=== PATIENT | female | born 1970 | race Caucasian/White ===

== ENCOUNTER → 2020-06-17 09:02 | Outpatient (BNVA) | payer OTHER, SELFPAY | PROVIDERS: PCP Internal Medicine; Referring Provider Internal Medicine; Visit Provider Dietitian, Registered | DX: Z76.89 Persons encountering health services in other specified circumstances (principal) ==

== ENCOUNTER → 2020-08-22 08:52 | Outpatient (BNVA) | payer OTHER, SELFPAY | PROVIDERS: PCP Internal Medicine; Visit Provider Dietitian, Registered | DX: Z76.89 Persons encountering health services in other specified circumstances (principal) ==

== ENCOUNTER 2020-08-31 10:59 | Outpatient (REF) | payer OTHER, SELFPAY ==
[2020-08-31 13:09] LABS: MANUAL DIFF FLAG NO
[2020-08-31 13:16] LABS: Eosinophils Percent Auto 0.9 % (0-4); Hemoglobin 11.4 g/dl (12.0-16.0); Imm Gran Abs Auto 0.01 X10*3/uL (0.00-0.03); Imm Gran Pct Auto 0.2 % (0.0-0.4); Lymphocytes Absolute Auto 1.8 X10*3/uL (1.2-4.9); Lymphocytes Percent Auto 40.8 % (20-40); Mean Corpuscular HGB Conc 32.6 g/dl (31.0-35.0); Mean Corpuscular Hemoglobin 28.9 pg (27.0-33.0); Mean Corpuscular Volume 88.8 fL (80-98); Mean Platelet Volume 10.6 fL (9.4-12.3); Monocytes Absolute Auto 0.2 X10*3/uL (0.1-1.2); Neutrophils Absolute Auto 2.3 X10*3/uL (2.0-8.3); Neutrophils Percent Auto 53.1 % (45-73); Platelet Count 257 X10*3/uL (160-400); Red Blood Count 3.94 X10*6/uL (4.20-5.50); Red Cell Distribution Width 12.9 % (11.0-16.0); White Blood Count 4.4 X10*3/uL (4.8-10.8)
[2020-08-31 13:38] LABS: Alanine Aminotransferase 18 U/L (0-31); Albumin Level 4.8 g/dL (3.5-5.0); Alkaline Phosphatase 76 U/L (39-117); Anion Gap 14 (12-20); Aspartate Amino Transferase 14 U/L (5-31); Bilirubin Total 0.4 mg/dL (0.0-1.0); Blood Urea Nitrogen 16 mg/dL (9-16); C Reactive Protein 0.93 mg/dL (< or = 0.50); Calcium 9.8 mg/dL (8.4-10.2); Carbon Dioxide 27 mmol/L (22-29); Chloride 104 mmol/L (96-108); Estimated Glomerular Filt Rate > 60; Glucose Random 95 mg/dL (60-115); Potassium 4.6 mmol/l (3.3-5.1); Sodium 140 mmol/L (135-145); Total Protein 7.3 g/dL (6.5-8.0)
[2020-08-31 13:59] LABS: Thyroid Stimulating Hormone 1.12 uIU/mL (0.32-4.0)
[2020-08-31 14:25] LABS: Erythrocyte Sedimentation Rate 30 MM/HR (0-20)
[2020-09-01 16:07] LABS: Cyclic Citrullinated Peptide <16 UNITS
[2020-09-02 22:18] LABS: Anti Nuclear Antibody Screen POSITIVE (NEGATIVE)
[2020-09-04 13:27] LABS: Vitamin D 25-OH, D2 <4 ng/mL; Vitamin D 25-OH, D3 50 ng/mL; Vitamin D 25-OH, Total 50 ng/mL (30-100)
== END 2020-08-31 11:00 | disposition home or self-care (01) ==
LOC: HO.LAB 10:59
PROVIDERS: PCP Internal Medicine; Referring Provider Internal Medicine; Visit Provider Student in an Organized Health Care Education/Training Program
DX: M25.50 Pain in unspecified joint (principal)
CPT/HCPCS: 36415; 80053; 82306; 84443; 85025; 85652; 86038; 86039; 86140; 86200

== ENCOUNTER 2020-09-01 08:43 | Outpatient (REF) | payer OTHER, SELFPAY ==
--- NOTE | 2020-09-01 08:47 | MM_ITS ---
EXAMINATION: MM SCREENING DIGITAL BREAST TOMOSYNTHESIS, BILATERAL CLINICAL INFORMATION: Screening. Asymptomatic. The lifetime risk of breast cancer based on the Tyrer-Cuzick Model is 7%. COMPARISON: Mammography: 08/25/2019, 08/13/2019, 07/15/2018, 07/10/2017 TECHNIQUE: Digital breast tomosynthesis is performed in both the craniocaudal and mediolateral oblique views along with computer-aided detection (CAD). Synthesized 2D images are generated from the tomosynthesis. FINDINGS: There are scattered areas of fibroglandular density (ACR BI-RADS breast composition Category b). There are no significant masses, abnormal calcifications, or other abnormalities. Parenchymal pattern is similar to prior studies. No developing density. No significant changes. MM/MM tomosynthesis screening BI IMPRESSION: No mammographic evidence of malignancy. ASSESSMENT: BI-RADS 1: Negative RECOMMENDATION: Routine annual mammography screening. This patient's information was entered into a reminder system with a target due date for their next mammogram.
== END 2020-09-01 08:44 | disposition home or self-care (01) ==
LOC: HO.MAMMO 08:43
PROVIDERS: PCP Internal Medicine; Visit Provider Obstetrics & Gynecology Gynecology
DX: Z12.31 Encounter for screening mammogram for malignant neoplasm of breast (principal)
CPT/HCPCS: 77063; 77067

== ENCOUNTER 2020-09-08 06:36 | Outpatient (REF) | payer OTHER, SELFPAY ==
[2020-09-08 07:17] LABS: Glucose Urine UA NEG (NEG); Leukocyte Esterase Urine NEG (NEG); Nitrite Urine NEG (NEG); Urine Blood NEG (NEG); Urine Ketones NEG (NEG); Urine Protein NEG (NEG-TRACE)
[2020-09-08 07:23] LABS: Appearance Urine CLEAR; Color Urine YELLOW
[2020-09-08 08:06] LABS: Mucus Urine 2+ /LPF; RBC Urine 0-2 /HPF (0); Squamous Epithelial Cell Urine 1+ /LPF
[2020-09-09 06:17] LABS: Thyroglobulin Antibodies <1 IU/mL (< or = 1); Thyroid Peroxidase Antibodies <1 IU/mL (<9)
[2020-09-09 13:42] LABS: Complement C3 110 mg/dL (83-193)
[2020-09-09 14:58] LABS: Anti DNA DS Antibody 1 IU/mL; SM/Ribonucleoprotein Ab <1.0 NEG AI (<1.0 NEG); Smith Protein <1.0 NEG AI (<1.0 NEG)
== END 2020-09-08 06:37 | disposition home or self-care (01) ==
LOC: HO.LAB 06:36
PROVIDERS: PCP Internal Medicine; Visit Provider Student in an Organized Health Care Education/Training Program
DX: R76.8 Other specified abnormal immunological findings in serum (principal)
CPT/HCPCS: 36415; 81001; 86160; 86225; 86235; 86376; 86800

== ENCOUNTER → 2020-09-20 08:25 | Outpatient (BNVA) | payer OTHER, SELFPAY | PROVIDERS: PCP Internal Medicine; Visit Provider Student in an Organized Health Care Education/Training Program ==

== ENCOUNTER → 2020-12-01 09:45 | Outpatient (BNVA) | payer OTHER, SELFPAY | PROVIDERS: PCP Internal Medicine; Visit Provider Dietitian, Registered | DX: E66.3 Overweight (principal); E78.00 Pure hypercholesterolemia, unspecified | CPT/HCPCS: 97803 ==

== ENCOUNTER 2020-12-05 09:03 | Outpatient (REF) | payer OTHER, SELFPAY ==
--- NOTE | ~2020-12-05 | XR_ITS ---
EXAMINATION: XR CHEST CLINICAL INFORMATION: Cough. COMPARISON: Chest radiograph dated 10/16/2019. TECHNIQUE: 2 views of the chest were obtained. FINDINGS: The lungs are clear. The cardiomediastinal silhouette is normal in size. There is no pleural effusion or pneumothorax. No acute osseous abnormality. XR/XR chest 2V IMPRESSION: No acute cardiopulmonary findings.
[2020-12-05 15:27] LABS: Influenza A PCR NEGATIVE (Negative); Influenza B PCR NEGATIVE (Negative); Resp Syncy Virus RNA Qual PCR NEGATIVE (Negative); SARS COV2 PCR INHOUSE NEGATIVE (Negative)
== END 2020-12-05 09:04 | disposition home or self-care (01) ==
LOC: HO.HMGCX 09:03
PROVIDERS: Visit Provider Nurse Practitioner Family
DX: R05 Cough (principal); Z20.822 Contact with and (suspected) exposure to COVID-19
CPT/HCPCS: 0241U; 36415; 71046

== ENCOUNTER 2020-12-05 09:13 | Outpatient (REF) | payer OTHER, SELFPAY | END 2020-12-05 09:14 | disposition home or self-care (01) | LOC: HO.LAB 09:13 | PROVIDERS: Visit Provider Nurse Practitioner Family | DX: Z13.89 Encounter for screening for other disorder (principal) ==

== ENCOUNTER 2021-07-15 06:58 | Outpatient (REF) | payer OTHER, SELFPAY ==
[2021-07-15 07:04] LABS: MANUAL DIFF FLAG NO
[2021-07-15 07:49] LABS: Immature Retic Fraction 5.3 % (3.0-15.9); Retic HGB Equivalent 33.1 pg (30.0-35.0); Reticulocyte Percent 0.9 % (0.5-1.8); Reticulocytes Absolute 0.035 X10*6/uL (0.026-0.095)
[2021-07-15 08:01] LABS: Alanine Aminotransferase 16 U/L (0-31); Albumin Level 4.2 g/dL (3.5-5.0); Alkaline Phosphatase 67 U/L (39-117); Anion Gap 10 (12-20); Aspartate Amino Transferase 15 U/L (5-31); Bilirubin Total 0.4 mg/dL (0.0-1.0); Blood Urea Nitrogen 20 mg/dL (9-16); Calcium 9.1 mg/dL (8.4-10.2); Carbon Dioxide 26 mmol/L (22-29); Chloride 107 mmol/L (96-108); Cholesterol 222 mg/dL; Estimated Glomerular Filt Rate > 60; Glucose Random 96 mg/dL (60-115); HDL Cholesterol 58 mg/dL; Iron 85 mcg/dL (30-160); LDL Cholesterol Calculated 149 mg/dl; Percent Iron Saturation 27 % (15-50); Potassium 4.3 mmol/L (3.3-5.1); Sodium 139 mmol/L (135-145); Total Iron Binding Capacity 320 mcg/dL (228-428); Total Protein 6.6 g/dL (6.5-8.0); Triglycerides 79 mg/dL; Unsaturated Iron Binding 235 ug/dL
[2021-07-15 08:24] LABS: Ferritin 73 ng/mL (10-250); Thyroid Stimulating Hormone 2.19 uIU/mL (0.32-4.0); Vitamin D 25-OH Total 42.8 ng/mL (>30)
[2021-07-15 09:17] LABS: Erythrocyte Sedimentation Rate 25 MM/HR (0-20)
[2021-07-15 09:18] LABS: Basophils Percent Auto 0.6 % (0-2); Eosinophils Absolute Auto 0.1 X10*3/uL (0.0-0.4); Eosinophils Percent Auto 1.8 % (0-4); Hematocrit 35.2 % (37.0-47.0); Hemoglobin 11.5 g/dl (12.0-16.0); Imm Gran Abs Auto 0.01 X10*3/uL (0.00-0.03); Imm Gran Pct Auto 0.3 % (0.0-0.4); Lymphocytes Absolute Auto 1.7 X10*3/uL (1.2-4.9); Lymphocytes Percent Auto 49.6 % (20-40); Mean Corpuscular HGB Conc 32.7 g/dl (31.0-35.0); Mean Corpuscular Hemoglobin 29.3 pg (27.0-33.0); Mean Corpuscular Volume 89.8 fL (80.0-98.0); Mean Platelet Volume 10.2 fL (9.4-12.3); Monocytes Absolute Auto 0.2 X10*3/uL (0.1-1.2); Monocytes Percent Auto 5.6 % (2-11); Neutrophils Absolute Auto 1.4 x10*3/uL (2.0-8.3); Neutrophils Percent Auto 42.1 % (45-73); Platelet Count 215 X10*3/uL (160-400); Red Blood Count 3.92 X10*6/uL (4.20-5.50); White Blood Count 3.4 X10*3/uL (4.8-10.8)
[2021-07-17 04:31] LABS: Vitamin B12 540 pg/mL (200-900)
== END 2021-07-15 06:59 | disposition home or self-care (01) ==
LOC: HO.LAB 06:58
PROVIDERS: Internal Medicine Medical Oncology; PCP Internal Medicine; Visit Provider Internal Medicine
DX: D72.819 Decreased white blood cell count, unspecified (principal); E78.00 Pure hypercholesterolemia, unspecified; R42 Dizziness and giddiness
CPT/HCPCS: 36415; 80053; 80061; 82306; 82607; 82728; 82746; 83540; 84439; 84443; 85025; 85045; 85652

== ENCOUNTER 2021-09-04 15:49 | Outpatient (REF) | payer OTHER, SELFPAY ==
--- NOTE | ~2021-09-04 | MM_ITS ---
EXAMINATION: MM SCREENING DIGITAL BREAST TOMOSYNTHESIS, BILATERAL CLINICAL INFORMATION: Screening. Asymptomatic. The lifetime risk of breast cancer based on the Tyrer-Cuzick Model is 8%. COMPARISON: Mammography: 09/01/2020, 08/25/2019, 08/13/2019, 07/15/2018; targeted left breast ultrasound 08/16/2016. TECHNIQUE: Digital breast tomosynthesis is performed in both the craniocaudal and mediolateral oblique views along with computer-aided detection (CAD). Synthesized 2D images are generated from the tomosynthesis. Additional left MLO x2 views are obtained. FINDINGS: There are scattered areas of fibroglandular density (ACR BI-RADS breast composition Category b). There are no significant masses, abnormal calcifications, or other abnormalities. Parenchymal pattern is similar to prior studies. No developing density. No architectural abnormality. The axilla and skin contours are unremarkable. MM/MM tomosynthesis screening BI IMPRESSION: No mammographic evidence of malignancy. ASSESSMENT: BI-RADS 1: Negative RECOMMENDATION: Routine annual mammography screening. This patient's information was entered into a reminder system with a target due date for their next mammogram.
== END 2021-09-04 15:50 | disposition home or self-care (01) ==
LOC: HO.MAMMO 15:49
PROVIDERS: Visit Provider Internal Medicine
DX: Z12.31 Encounter for screening mammogram for malignant neoplasm of breast (principal)
CPT/HCPCS: 77063; 77067

== ENCOUNTER → 2021-11-15 11:23 | Outpatient (BNVA) | payer OTHER, SELFPAY | PROVIDERS: PCP Internal Medicine; Referring Provider Internal Medicine; Visit Provider Physician Assistant | DX: Z12.11 Encounter for screening for malignant neoplasm of colon (principal); Z79.899 Other long term (current) drug therapy ==

== ENCOUNTER → 2022-01-25 08:54 | Outpatient (BNVA) | payer OTHER, SELFPAY | PROVIDERS: PCP Internal Medicine; Visit Provider Dietitian, Registered | DX: E66.3 Overweight (principal); E78.00 Pure hypercholesterolemia, unspecified; Z68.28 Body mass index [BMI] 28.0-28.9, adult | CPT/HCPCS: 97803 ==

== ENCOUNTER → 2022-03-23 09:18 | Outpatient (BNVA) | payer OTHER, SELFPAY | PROVIDERS: PCP Internal Medicine; Visit Provider Dietitian, Registered | DX: E66.3 Overweight (principal); E78.00 Pure hypercholesterolemia, unspecified | CPT/HCPCS: 97803 ==

== ENCOUNTER → 2022-06-22 09:21 | Outpatient (BNVA) | payer OTHER, SELFPAY | PROVIDERS: PCP Internal Medicine; Visit Provider Dietitian, Registered | DX: E66.3 Overweight (principal); E78.00 Pure hypercholesterolemia, unspecified; E78.5 Hyperlipidemia, unspecified; Z68.27 Body mass index [BMI] 27.0-27.9, adult; Z71.3 Dietary counseling and surveillance | CPT/HCPCS: 97803 ==

== ENCOUNTER 2022-09-13 07:18 | Outpatient (REF) | payer OTHER, SELFPAY ==
--- NOTE | ~2022-09-13 | MM_ITS ---
EXAMINATION: MM SCREENING DIGITAL BREAST TOMOSYNTHESIS, BILATERAL CLINICAL INFORMATION: Screening. Asymptomatic. The lifetime risk of breast cancer based on the Tyrer-Cuzick Model is 8%. COMPARISON: Mammography: September 04, 2021 and studies dating back to August 13, 2016 TECHNIQUE: Digital breast tomosynthesis is performed in both the craniocaudal and mediolateral oblique views along with computer-aided detection (CAD). Synthesized 2D images are generated from the tomosynthesis. FINDINGS: There are scattered areas of fibroglandular density (ACR BI-RADS breast composition Category b). There are no significant masses, abnormal calcifications, or other abnormalities. MM/MM tomosynthesis screening BI IMPRESSION: No significant changes ASSESSMENT: BI-RADS 1: Negative RECOMMENDATION: Routine annual mammography screening. This patient's information was entered into a reminder system with a target due date for their next mammogram.
== END 2022-09-13 07:19 | disposition home or self-care (01) ==
LOC: HO.MAMMO 07:18
PROVIDERS: Visit Provider Internal Medicine
DX: Z12.31 Encounter for screening mammogram for malignant neoplasm of breast (principal)
CPT/HCPCS: 77063; 77067

== ENCOUNTER 2022-11-16 07:03 | Day surgery (SDC) | payer OTHER, SELFPAY ==
[2022-11-12 15:02] VITALS: BMI 28.8
--- NOTE | 2022-11-15 12:17 | HO.ANESPROP2 ---
Documented by User: Joanie Murray NP 11/15/22 12:17 HPI - Anesthesia Eval Consult details Narrative: 52yo F for Colonoscopy PMFSH Active Problems Active Problems: All Active Problems (Updated 11/12/22 @ 14:53 by Mirella Rendon, JUDY) Overweight (BMI 25.0-29.9) (Acute) Polyarthralgia (Acute) LENIN positive (Acute) Chronic leukopenia (Acute) Fibromyalgia (Acute) Cough (Acute) Laryngitis (Acute) Annual physical exam (Acute) Colon cancer screening (Acute) Generalized anxiety disorder (Acute) Vertigo (Acute) Anemia (Acute) Insomnia (Acute) Encounter for screening colonoscopy (Acute) Hearing deficit (Acute) Alopecia (Acute) LENIN positive (Acute) Constipation (Acute) Raynauds phenomenon (Acute) Hypercholesterolemia (Acute) Past Medical History Medical History (Updated 11/16/22 @ 07:23 by Sivan Hernández RN) Anemia Chronic low back pain Fibromyalgia Hx of vertigo Hypercholesterolemia Meniere disease Migraine Raynauds phenomenon Family History Family History Father Diabetes Hypertension Mother Hypertension Maternal Aunt Myocardial infarction Maternal Uncle Myocardial infarction Surgical History Surgical History Hx of tubal ligation Social History Social History (Updated 02/12/22 @ 08:33 by Lata Santos CMA) Household Members: Significant Other and Children Housing: House Are you 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 (mother) Do you presently have visiting nurse or other home services: No Alcohol intake: never Patient Tobacco Use Status: Never used Tobacco e-Cigarette/Vaping Use: Never Used Second Hand Smoke Exposure: No Are you DNR?: No Advance Directives: No Advance Directives Information Provided: Yes Recently lost weight without trying: No Nutrition Risks: No Nutritional Risk service: No Current occupational status: employed Cognitive needs: No Hearing needs: No Vision needs: No Meds Allergies Allergy/AdvReac Type Severity Reaction Status Date / Time Penicillins Allergy Intermediate Rash, Verified 10/29/22 16:42 Swelling fluoxetine AdvReac Intermediate Swelling Verified 10/29/22 16:42 Home Medications Medication Instructions Recorded Confirmed Last Taken Type multivitamin 1 tab PO DAILY 06/17/20 11/12/22 Unknown History melatonin 10 mg capsule 10 mg PO BEDTIME PRN Sleep 07/18/20 11/12/22 Unknown History estradiol 0.01% (0.1 mg/gram) 1 g vaginal 2XW 12/05/20 11/12/22 Unknown History vaginal cream ashwagandha root extract 500 mg 1,300 mg PO DAILY 02/12/22 11/12/22 Unknown History capsule Exam Exam Date and Time: November 15, 2022 1217 Height,Weight and Vital Signs: Height 5 ft 5 in Weight 78.471 kg Assessment and Plan Assessment Anesthesia Assessment: Chart Reviewed Documented by User: Alberta Reveles MD 11/16/22 09:12 HPI - Anesthesia Eval Consult details Narrative: 52yo F for Colonoscopy screening [facility] Past Medical History Medical History (Updated 11/16/22 @ 07:23 by Sivan Hernández RN) Anemia Chronic low back pain Fibromyalgia Hx of vertigo Hypercholesterolemia Meniere disease Migraine Raynauds phenomenon Family History Family History Father Diabetes Hypertension Mother Hypertension Maternal Aunt Myocardial infarction Maternal Uncle Myocardial infarction Family history of problems with anesthesia: No Surgical History Surgical History Hx of tubal ligation History of Problems with Anesthesia: No Social History Social History (Updated 02/12/22 @ 08:33 by Lata Santos CMA) Household Members: Significant Other and Children Housing: House Are you 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 (mother) Do you presently have visiting nurse or other home services: No Alcohol intake: never Patient Tobacco Use Status: Never used Tobacco e-Cigarette/Vaping Use: Never Used Second Hand Smoke Exposure: No Are you DNR?: No Advance Directives: No Advance Directives Information Provided: Yes Recently lost weight without trying: No Nutrition Risks: No Nutritional Risk service: No Current occupational status: employed Cognitive needs: No Hearing needs: No Vision needs: No Meds Allergies Allergy/AdvReac Type Severity Reaction Status Date / Time Penicillins Allergy Intermediate Rash, Verified 10/29/22 16:42 Swelling fluoxetine AdvReac Intermediate Swelling Verified 10/29/22 16:42 Home Medications Medication Instructions Recorded Confirmed Last Taken Type multivitamin 1 tab PO DAILY 06/17/20 11/12/22 Unknown History melatonin 10 mg capsule 10 mg PO BEDTIME PRN Sleep 07/18/20 11/12/22 Unknown History estradiol 0.01% (0.1 mg/gram) 1 g vaginal 2XW 12/05/20 11/12/22 Unknown History vaginal cream ashwagandha root extract 500 mg 1,300 mg PO DAILY 02/12/22 11/12/22 Unknown History capsule Exam Airway Mallampati Class: II TM Dist: >3cm Neck ROM: Full Heart: rr Lungs: cta Assessment and Plan Final Anesthetic Review Family History of Problems with Anesthesia: No History of Problems with Anesthesia: No NPO: Yes ASA Class: II Final Preanesthetic Review: No Changes in Pt Med Stat, Consent Obtained/Reviewed and Anes Risks/Benef Reviewed Patient Risk: Low Procedure Risk: Low Anesthetic Plan Anesthetic Plan: MAC: Disposition: Standard PACU
[2022-11-16 07:07] VITALS: BP 107/74; PULSE 90; RESP 18; TEMP 36.8; O2SAT 99
--- NOTE | 2022-11-16 07:18 | PC.NURSE ---
no meds taken today
[2022-11-16] MEDS: Lactated Ringers 1,000 ML 100 ML IVCONT (07:31)
--- NOTE | 2022-11-16 07:35 | MHC.SHP ---
Pre-Procedural Eval Section A Date of Service: 11/16/22 The patient is an INPATIENT: No The History & Physical has been completed within 30 days and I have reviewed it.: No Section B Chief Complaint: screening Details of Present Illness: colon cancer screen Relevant Family History (Specify if Yes): No Relevant Social History: None Present Medications: see Short Stay Collaborative assessment Medical History: Significant History (Anemia Chronic low back pain Hypercholesterolemia Meniere disease Migraine Raynauds phenomenon) History of Previous Operations: Relevant previous surgery/procedure and date(s) (History of tubal ligation) Allergies: Allergies Allergy/AdvReac Type Severity Reaction Status Date / Time Penicillins Allergy Intermediate Rash, Verified 10/29/22 16:42 Swelling fluoxetine AdvReac Intermediate Swelling Verified 10/29/22 16:42 Review of Systems Sugical H&P ROS: Negative: Constitution, Cardiovascular, Respiratory and Gastrointestinal Exam Surgical H&P Exam: Normal: Heart, Normal: Lungs, Normal: Extremities and Normal: Abdomen Plan Diagnosis/Plan: Unchanged I have reviewed the history and physical and performed a pertinent physical examination on my patient. No changes have occurred unless specified. Time Spent With Patient Time: Total time managing care of this patient today ____ minutes.
--- NOTE | 2022-11-16 08:38 | PM.OP ---
Brief Operative Note Date of Service: 11/16/22 Pre-op diagnosis: Colon cancer screening Post-op diagnosis: other ( colon polyp, diverticulosis, hemorrhoids) Procedure: COLONOSCOPY TILL CECUM WITH BIOPSIES Surgeon: Asael Lainez MD Anesthesia: MAC Was an Certified Recreational Therapist used for this Procedure?: Yes Certified Recreational Therapist: Clare Singleton Estimated blood loss (mL): 0 Pathology: other (A. rectal polyp) Condition: stable Disposition: PACU
--- NOTE | 2022-11-16 08:39 | W.PM.OPN ---
Operative Note Operative Note Date of Service: 11/16/22 Narrative: COLONOSCOPY TILL CECUM WITH BIOPSIES Indication:? Colon cancer screening Endoscopist:? Asael Lainez MD Anesthesia Provider:?Dr Reveles Anesthesia type:?MAC Consent: Indications for the procedure and potential complications of bleeding, perforation, reaction to medications and missed diagnosis were discussed with the patient and informed consent was obtained. Instrument: Olympus PCF H 190 L variable stiffness pediatric colonoscope Monitoring: Vital signs and clinical assessment, intermittent blood pressure monitoring, continuous EKG monitoring, Pulse oximetry and Carbon Dioxide monitoring were done throughout the procedure. Please see anesthesia flowsheet. Colon withdrawl time was 16 minutes. Procedure: The patient was placed in the left lateral decubitis position and pre-procedure medications were administered. After a digital rectal examination of the ano-rectum, the video colonoscope was inserted into the rectum and advanced through the colon to the cecum. The colonoscope was slowly withdrawn in a retrograde panoramic fashion and the colon mucosa was carefully examined including a retroflexed view of the rectum. Findings and interventions are described below. Procedure Difficulty: colon was long and tortuous and there was spasm and some loop formation. LLQ pressure applied to intubate the cecum Findings: Terminal Ileum: Not evaluated Cecum: Normal Ascending Colon: Normal Transverse Colon: Normal Descending Colon: Normal Sigmoid Colon: Moderate diverticulosis Rectum: A 2-3 mm sessile polyp in the rectum at 15 cms - removed with a cold bx. Ano-rectum: Moderate internal hemorrhoids Colon preparation: Excellent Impression and Post Procedure Diagnosis: Colonoscopy Findings: One tiny polyp removed Moderate diverticulosis seen in the sigmoid colon Moderate hemorrhoids on retroflexed exam. Plan: I will send a letter with pathology results Repeat Colonoscopy interval based on path results - in 5 years if polyps are adenomatous and 10 years if polyps are hyperplastic. Above findings were reviewed with the patient and colon polyps and diverticulosis handouts were given in the discharge area
[2022-11-16 09:29] VITALS: BP 127/83; PULSE 95; RESP 18; TEMP 36.4; O2SAT 99
[2022-11-16 09:44] VITALS: BP 127/79; PULSE 83; RESP 18; O2SAT 99
[2022-11-16 09:59] VITALS: BP 123/80; PULSE 72; RESP 18; TEMP 36.5; O2SAT 100
== END 2022-11-16 10:24 | disposition home or self-care (01) ==
PROVIDERS: PCP Internal Medicine; Visit Provider Internal Medicine Gastroenterology
PROC: 0DJD8ZZ Inspection of Lower Intestinal Tract, Via Natural or Artificial Opening Endoscopic (ICD-10-PCS; CPT 45378; principal; 2022-11-16 08:30)
DX: Z12.11 Encounter for screening for malignant neoplasm of colon (principal); K62.1 Rectal polyp; K57.30 Diverticulosis of large intestine without perforation or abscess without bleeding; K64.8 Other hemorrhoids; E78.00 Pure hypercholesterolemia, unspecified; D64.9 Anemia, unspecified; I73.00 Raynaud's syndrome without gangrene; H81.09 Meniere's disease, unspecified ear; M54.50 Low back pain, unspecified; G89.29 Other chronic pain; G43.109 Migraine with aura, not intractable, without status migrainosus; Z79.1 Long term (current) use of non-steroidal anti-inflammatories (NSAID); Z79.899 Other long term (current) drug therapy; Z88.0 Allergy status to penicillin; Z88.8 Allergy status to other drugs, medicaments and biological substances
CPT/HCPCS: 45380; 88305; J2250

== ENCOUNTER 2023-01-19 07:13 | Outpatient (REF) | payer OTHER, SELFPAY ==
[2023-01-19 07:28] LABS: MANUAL DIFF FLAG NO
[2023-01-19 07:32] LABS: Basophils Percent Auto 0.2 % (0-2); Eosinophils Absolute Auto 0.1 X10*3/uL (0.0-0.4); Eosinophils Percent Auto 1.7 % (0-4); Hematocrit 35.6 % (37.0-47.0); Hemoglobin 11.6 g/dl (12.0-16.0); Imm Gran Abs Auto 0.01 X10*3/uL (0.00-0.03); Imm Gran Pct Auto 0.2 % (0.0-0.4); Immature Retic Fraction 8.3 % (3.0-15.9); Lymphocytes Absolute Auto 1.4 X10*3/uL (1.2-4.9); Lymphocytes Percent Auto 33.8 % (20-40); Mean Corpuscular HGB Conc 32.6 g/dl (31.0-35.0); Mean Corpuscular Hemoglobin 28.8 pg (27.0-33.0); Mean Corpuscular Volume 88.3 fL (80.0-98.0); Mean Platelet Volume 9.7 fL (9.4-12.3); Monocytes Absolute Auto 0.3 X10*3/uL (0.1-1.2); Monocytes Percent Auto 6.4 % (2-11); Neutrophils Absolute Auto 2.4 x10*3/uL (2.0-8.3); Neutrophils Percent Auto 57.7 % (45-73); Platelet Count 237 X10*3/uL (160-400); Red Blood Count 4.03 X10*6/uL (4.20-5.50); Red Cell Distribution Width 13.1 % (11.0-16.0); Reticulocyte Percent 1.1 % (0.5-1.8); Reticulocytes Absolute 0.046 X10*6/uL (0.026-0.095); White Blood Count 4.2 X10*3/uL (4.8-10.8)
[2023-01-19 08:15] LABS: Erythrocyte Sedimentation Rate 25 MM/HR (0-20)
[2023-01-19 08:29] LABS: Alanine Aminotransferase 27 U/L (0-31); Albumin Level 4.2 g/dL (3.5-5.0); Alkaline Phosphatase 87 U/L (39-117); Anion Gap 10 (12-20); Aspartate Amino Transferase 15 U/L (5-31); Bilirubin Total 0.4 mg/dL (0.0-1.0); Blood Urea Nitrogen 14 mg/dL (9-16); C Reactive Protein 0.73 mg/dL (< or = 0.50); Calcium 9.3 mg/dL (8.4-10.2); Carbon Dioxide 26 mmol/L (22-29); Chloride 109 mmol/L (96-108); Cholesterol 208 mg/dL; Estimated Glomerular Filt Rate > 60; Glucose Random 100 mg/dL (60-115); HDL Cholesterol 54 mg/dL; Iron 64 mcg/dL (30-160); LDL Cholesterol Calculated 137 mg/dl; Percent Iron Saturation 22 % (15-50); Potassium 4.4 mmol/L (3.3-5.1); Sodium 141 mmol/L (135-145); Total Iron Binding Capacity 293 mcg/dL (228-428); Total Protein 6.6 g/dL (6.5-8.0); Triglycerides 89 mg/dL; Unsaturated Iron Binding 229 ug/dL
[2023-01-19 08:57] LABS: Ferritin 62 ng/mL (10-250); Folate 15.1 ng/mL (> or = 4.0); Free T4 (Free Thyroxine) 0.88 ng/dL (0.71-1.85); Thyroid Stimulating Hormone 1.49 uIU/mL (0.32-4.0); Vitamin B12 425 pg/mL (200-900)
== END 2023-01-19 07:14 | disposition home or self-care (01) ==
LOC: HO.LAB 07:13
PROVIDERS: PCP Internal Medicine; Visit Provider Internal Medicine
DX: I73.00 Raynaud's syndrome without gangrene (principal); E78.00 Pure hypercholesterolemia, unspecified; D64.9 Anemia, unspecified; E55.9 Vitamin D deficiency, unspecified
CPT/HCPCS: 36415; 80053; 80061; 82306; 82607; 82728; 82746; 83540; 84439; 84443; 85025; 85045; 85652; 86140

== ENCOUNTER 2023-02-19 15:53 | Outpatient (REF) | payer OTHER, SELFPAY | END 2023-02-19 15:54 | disposition home or self-care (01) | LOC: HO.SH 15:53 | PROVIDERS: Visit Provider Internal Medicine | DX: Z01.118 Encounter for examination of ears and hearing with other abnormal findings (principal); H93.293 Other abnormal auditory perceptions, bilateral; R42 Dizziness and giddiness | CPT/HCPCS: 92557 ==

== ENCOUNTER 2023-03-04 15:09 | Outpatient (AMB) | payer OTHER, SELFPAY ==
--- NOTE | 2023-03-04 15:10 | A.OFFVIS_ITS ---
Intake Vital Signs 03/04/23 15:11 Height 5 ft 5 in Weight 180 lb 5.41 oz BMI 30.0 BP 112/68 Blood Pressure Location Rt brachial Position Sitting Pulse 84 Pulse Source Pulse Oximeter Temp 97.4 F Temp Source Skin Pulse Oximetry (%) 96 Intake Visit Reasons: Raynaud's syndrome w/o gangrene / Joint Pain . . . Intake Note: New pt presents today for consult. C/o sleep disturbance, mental fog, hair loss.. diagnosed with FM. States she is not getting better getting worse. Harness Cutter Required: No Accompanied by: Self / Same As Patient Allergies Penicillins Allergy (Intermediate, Verified 03/04/23 15:16) Rash, Swelling fluoxetine Adverse Reaction (Intermediate, Verified 03/04/23 15:16) Swelling Medication List - Last Reconciled 03/04/23 by Ismael Waterman MD amitriptyline 25 mg PO BEDTIME estradiol 0.01%(0.1mg/gram) 1 g vaginal 2XW ibuprofen 800 mg PO TID PRN 90 days melatonin 10 mg PO BEDTIME PRN multivitamin 1 tab PO DAILY HPI HPI Comments History of Present Illness Details The patient presents for evaluation of widespread pain and positive LENIN. She had last been seen in Rheumatology about a 2 and a half years ago by Dr. Mann. She has a history of a low-grade anemia, mild leukopenia, and positive LENIN. Serologic testing looking for other attributes of SLE was negative. She has noted, probably for about 5 years now, rather diffuse and migratory pains. These involve the neck, shoulders, hands, lower back, knees, and ankles. The pains are not usually in the same pattern. They tend to get worse when she is more physically active. She has been less physically active in the last year or 2 because of the symptoms of pain. She notes occasional swelling in the hands that comes and goes. She has Raynaud's symptoms but no history of cutaneous ulcerations. She has had some hair thinning. She has a lot of daytime fatigue and wakes feeling unrefreshed. 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 She is presently taking amitriptyline at bedtime but does not think it helps. She had doubleed it up to 50 mg and that did not seem to make a difference as far as her sleep goes. She was prescribed Seroquel but was worried about side effects and did not take it. [facility] Medical History (Updated 03/04/23 @ 16:19 by Ismael Waterman MD) Alopecia Anemia Chronic low back pain Colon cancer screening Cough Encounter for screening colonoscopy Fibromyalgia Hearing deficit Hx of vertigo Hypercholesterolemia Laryngitis Meniere disease Migraine Raynauds phenomenon Vertigo Surgical History Hx of tubal ligation Family History Father Diabetes Hypertension Mother Hypertension Maternal Aunt Myocardial infarction Maternal Uncle Myocardial infarction Social History Household Members: Significant Other and Children Housing: House Are you a primary career development coordinator/teacher to a significant other at home: Yes (mother) Do you presently have visiting nurse or other home services: No Alcohol intake: never Patient Tobacco Use Status: Never used Tobacco e-Cigarette/Vaping Use: Never Used Second Hand Smoke Exposure: No service: No Current occupational status: employed Cognitive needs: No Hearing needs: No Vision needs: No Review of Systems Const Details: Fatigue and weight gain over the last few years. Negative for appetite change, fever, chills, malaise Eyes Details: Occasional headaches. She gets episodes of vertigo when she lies down. Negative for vision change, dry eyes,headaches ENT Details: Episodes of vertigo. She was told she had a hearing loss. Negative for hearing change, tinnitus, oral ulcer, nose bleeds and oral dryness. Card Details: Negative chest pain, edema and syncope Resp Details: Negative for SOB, cough and wheezing GI Details: Negative indigestion/heartburn, nausea, abdominal pain, bowel changes, diarrhea, constipation and bloody stool. Details: Negative for dysuria, hematuria, nocturia, decreased force/flow and genital discharge Skin/Breast Details: Some color change in the fingertips in the toes in the cold weather, they turn blue. No skin ulcerations. Negative for itching, rash, hives, sun sensitivity, and skin cancer Neuro Details: Negative for epilepsy, palsy, stroke, changes in speech, tingling and weakness Psych Details: Some anxiety at times at work. She has a new position. That is stressful for her at times. Negative for depression Endo Details: Negative for polyuria and polydypsia Felipe/Lymph Details: Negative for excessive bruising or bleeding. Physical Exam Vital Signs: Last Vital Signs Temp 97.4 F 03/04/23 15:11 Pulse 84 03/04/23 15:11 BP 112/68 03/04/23 15:11 Pulse Ox 96 03/04/23 15:11 BMI result Body Mass Index 30.0 APPEARANCE: Patient in no acute distress EYES no redness, pupils equal and reactive to light, eyelids normal EARS: External ear normal, canal clear and tympanic membrane normal. NOSE/SINUS: Airflow through both nares, no nasal discharge, no bleeding THROAT: Oral mucosa moist, no ulcerations NECK: No thyromegaly or masses, no adenopathy, trachea midline. HEART: Regulrar rhythm, S1-S2 heard, no murmurs, rubs or gallops. LUNG: Clear to percussion and auscultation ABD: Normal bowel sounds, no organomegaly, masses or tenderness. EXTREMITIES: No edema, no calf tenderness, normal peripheral pulses. NEURO: Oriented and alert x3. No focal weakness. Reflexes symmetric. Gait normal. SKIN: No inflammatory or neoplastic lesions. Normal color and turgor of the fingertips and toes. She does have some thinning of the hair in the anterior and central scalp. 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 I do not see any skin lesions. JOINT EXAM:.?? Cervical Spine:.? Full range of motion without pain; mild posterior cervical muscle tenderness. Thoracic Spine:.? No scoliosis.? No tenderness on palpation. Lumbar Spine:.? Alignment normal.? Full range of motion without pain, no tenderness. Chest Wall:.? No tenderness, swelling, increased warmth or erythema. Hands:.? Normal pain-free range of motion. There is some slight tenderness at the 2nd and 3rd PIP regions but I do not see any swelling. Other joints are without tenderness, swelling, increased warmth or erythema. There is no flexor tendon triggering, thenar atrophy or sensory loss. Wrists:.? Normal pain-free range of motion without tenderness, swelling, increased warmth or erythema. Elbows:. Normal pain-free range of motion without tenderness, swelling, increased warmth or erythema. Shoulders:.?? Full range of motion without pain. No tenderness, weakness, swelling, increased warmth or erythema. Hips:.? Full range of motion without pain. Hip bursa:.? Mild trochanteric tenderness. Knees:.?? Normal pain-free range of motion with patellofemoral crepitus. There is no effusion, tenderness, swelling, increased warmth or erythema.? Ankles:.? Normal pain-free range of motion without tenderness, swelling, increased warmth or erythema. Feet:.? Normal pain-free range of motion with mild bony enlargement at the 1st MTP joints. This is more prominent with some hallux valgus deformity at the right 1st MTP. Those areas are not tender today. Other joints have no tenderness, swelling, increased warmth or erythema. Tender points:.? Mild tenderness to digital palpation at the occiput, trapezius, second rib, lateral epicondyle, knees, greater trochanter and gluteal area bilaterally. ? Results Reviewed Results Reviewed: Laboratory Tests Laboratory Tests 01/19/23 07:27 Iron 64 Ferritin 62 08/31/20 08/31/20 09/08/20 12:38 12:38 06:50 WBC Hgb Absolute Neuts (auto) ESR Creatinine AST ALT C-Reactive Protein Rheumatoid Factor Cycl Citrul Peptide IgG <16 LENIN Titer 1:80 H Sm (Perez) Antibody <1.0 NEG SM/PNEUMATIC PRESS HAND IgG Antibody <1.0 NEG Double Strand DNA Ab 1 11/07/20 02/12/22 01/19/23 09:11 08:19 07:27 WBC 4.2 L Hgb 11.6 L Absolute Neuts (auto) 2.4 ESR Creatinine AST 30 D ALT 38 H C-Reactive Protein Rheumatoid Factor < 15.0 Cycl Citrul Peptide IgG LENIN Titer Sm (Perez) Antibody SM/PNEUMATIC PRESS HAND IgG Antibody Double Strand DNA Ab 01/19/23 01/19/23 07:27 07:27 WBC Hgb Absolute Neuts (auto) ESR 25 H Creatinine 0.77 AST 15 ALT 27 C-Reactive Protein 0.73 H Rheumatoid Factor Cycl Citrul Peptide IgG LENIN Titer Sm (Perez) Antibody SM/PNEUMATIC PRESS HAND IgG Antibody Double Strand DNA Ab Laboratory Tests 01/19/23 07:27 TSH 1.49 Free T4 0.88 Assessment & Plan Assessment & Plan (1) Chronic leukopenia: Code(s): D72.819 - Decreased white blood cell count, unspecified (2) Polyarthralgia: Code(s): M25.50 - Pain in unspecified joint (3) Fibromyalgia: Code(s): M79.7 - Fibromyalgia (4) Raynauds phenomenon: Code(s): I73.00 - Raynaud's syndrome without gangrene (5) Alopecia: Code(s): L65.9 - Nonscarring hair loss, unspecified (6) Anemia: Code(s): D64.9 - Anemia, unspecified (7) Vertigo: Code(s): R42 - Dizziness and giddiness (8) LENIN positive: Code(s): R76.8 - Other specified abnormal immunological findings in serum Plan The patient has rather longstanding polyarthralgias, mild leukopenia, mild anemia, a positive LENIN, and some anterior hair thinning. I do not see signs of active skin disease of lupus. I do not see signs of active inflammatory arthritis. Her overall fatigue, low energy, and tender points are consistent with fibromyalgia. I reviewed with her that diagnosis and give her some printed information on fibromyalgia. I will recheck some serology studies for her positive LENIN. Recent TSH and iron levels were normal so I do not think that could explain her fatigue. I am referring her to ENT to evaluate the positional vertigo. I will also see if Dermatology could see her about the hair loss. We talked about potential symptomatic measures for the fibromyalgia and fatigue. She is worried that medications would give her side effects. We reviewed possible treatment with antidepressants, muscle relaxants and membrane stabilizers. She wants to try some nighttime cyclobenzaprine 5-10 mg. She will take this with the amitriptyline but needs to be aware it could be extra sedating with that additional medication. We will get back to her with the results of her studies. I will not schedule a follow-up at this point in Rheumatology. Review of her record, history, physical exam, lab work, and potential treatment options took 44 minutes. Orders: Orders C Reactive Protein Today M25.50 - Pain in unspecified joint, R76.8 - Other specified abnormal immunological findings in serum Protein Creatinine Ratio, Ur Today M25.50 - Pain in unspecified joint, R76.8 - Other specified abnormal immunological findings in serum Erythrocyte Sedimentation Rate Today M25.50 - Pain in unspecified joint, R76.8 - Other specified abnormal immunological findings in serum Complement C3 Today M25.50 - Pain in unspecified joint, R76.8 - Other specified abnormal immunological findings in serum Complement C4 Today M25.50 - Pain in unspecified joint, R76.8 - Other specified abnormal immunological findings in serum Anti DNA DS Antibody Today M25.50 - Pain in unspecified joint, R76.8 - Other specified abnormal immunological findings in serum Anti Extractable Nuclear Ag Today M25.50 - Pain in unspecified joint, R76.8 - Other specified abnormal immunological findings in serum Vitamin B12 Today D64.9 - Anemia, unspecified Referrals Dermatology Referral L65.9 - Nonscarring hair loss, unspecified Ear/Nose/Throat Referral R42 - Dizziness and giddiness Medications: New cyclobenzaprine 5 - 10 mg (1 - 2 x 5 mg) PO BEDTIME PRN 30 tabs 0RF muscle spasm M79.7 - Fibromyalgia Coding Level of Care Code Est Pt Level 5 (93933) Diagnoses Chronic leukopenia D72.819 Polyarthralgia M25.50 Fibromyalgia M79.7 Raynauds phenomenon I73.00 Alopecia L65.9 Anemia D64.9 Vertigo R42 LENIN positive R76.8
[2023-03-04 15:11] VITALS: BP 112/68; PULSE 84; TEMP 36.3; O2SAT 96
== END 2023-03-04 16:22 | disposition home or self-care (01) ==
LOC: HO.RHE 15:09
PROVIDERS: PCP Internal Medicine; Visit Provider Internal Medicine Rheumatology
DX: D72.819 Decreased white blood cell count, unspecified (principal); M25.50 Pain in unspecified joint; M79.7 Fibromyalgia; I73.00 Raynaud's syndrome without gangrene; L65.9 Nonscarring hair loss, unspecified; D64.9 Anemia, unspecified; R42 Dizziness and giddiness; R76.8 Other specified abnormal immunological findings in serum
CPT/HCPCS: 99205

== ENCOUNTER → 2023-03-04 15:09 | Outpatient (BNVA) | payer OTHER, SELFPAY | PROVIDERS: PCP Internal Medicine; Visit Provider Internal Medicine Rheumatology ==

== ENCOUNTER 2023-05-18 09:22 | Outpatient (AMB) | payer OTHER, SELFPAY ==
[2023-05-18 10:23] VITALS: BP 118/74; PULSE 89; TEMP 36.6; O2SAT 98
--- NOTE | 2023-05-18 10:23 | MHC.OFFWIV ---
Intake Vital Signs 05/18/23 10:23 Height 5 ft 5 in Weight 180 lb BMI 30.0 BP 118/74 Blood Pressure Location Rt brachial Position Sitting Pulse 89 Pulse Source Pulse Oximeter Temp 97.8 F Temp Source Temporal Artery Scan Pulse Oximetry (%) 98 Intake Visit Reasons: EST/coughX3 weeks Intake Note: pt is here for c/o cough for 3 weeks Patient Tobacco Use Status: Never used Tobacco Allergies Penicillins Allergy (Intermediate, Verified 05/18/23 10:23) Rash, Swelling fluoxetine Adverse Reaction (Intermediate, Verified 05/18/23 10:23) Swelling Do you need a note to return to daycare/school/sports/work: Yes HPI EST/coughX3 weeks HPI Details Patient is a 53-year-old female comes the walk-in clinic complaining of upper respiratory infection for the last few weeks that has now progressed into her chest. She states that she has a persistent dry cough that is especially worse at night and wakes sleeping difficult. She is no longer coughing up productive phlegm, and no longer has significant runny nose or postnasal drip. She states she was negative for COVID at the onset of symptoms, and has no known sick contacts. She denies fever or chills, shortness of breath, chest pain abdominal pain, nausea vomiting or diarrhea, weakness or dizziness dizziness, malaise or myalgias, headache, sore throat, anorexia, or other significant associated symptoms. She does have underlying immuno compromising issues. [facility] Medical History Hx of vertigo Fibromyalgia Alopecia Hearing deficit Encounter for screening colonoscopy Vertigo Colon cancer screening Laryngitis Cough Migraine Meniere disease Raynauds phenomenon Hypercholesterolemia Chronic low back pain Anemia Surgical History Hx of tubal ligation Family History Father Diabetes Hypertension Mother Hypertension Maternal Aunt Myocardial infarction Maternal Uncle Myocardial infarction Social History Household Members: Significant Other and Children Housing: House Are you a primary neonatal intensive care nurse to a significant other at home: Yes (mother) Do you presently have visiting nurse or other home services: No Alcohol intake: never Patient Tobacco Use Status: Never used Tobacco e-Cigarette/Vaping Use: Never Used Second Hand Smoke Exposure: No service: No Current occupational status: employed Cognitive needs: No Hearing needs: No Vision needs: No Review of Systems Const All systems reviewed & are unremarkable except as noted in HPI and below Physical Exam Vital Signs: Last Vital Signs Temp 97.8 F 05/18/23 10:23 Pulse 89 05/18/23 10:23 BP 118/74 05/18/23 10:23 Pulse Ox 98 05/18/23 10:23 BMI result Body Mass Index 30.0 Const General: cooperative, no acute distress, alert, awake, Physically active, ill appearing and well groomed; No anxious, diaphoretic, intoxicated appearing, poor hygiene or tired appearing Nutritional Appearance: average body habitus and overweight Orientation/consciousness: patient oriented x3 Limitations: no limitations HEENT Head: Yes normal to inspection, Yes normocephalic and Yes atraumatic Ears: hearing grossly normal bilaterally, external ears normal, TM's normal bilaterally and EAC's normal General nose exam: Normal external nose present, Normal nares present, No nasal polyps present, Normal nasal mucous membranes and turbinates present, Normal septum present and No nasal discharge present Face and sinus: Yes normal facial exam, Yes sinuses nontender and Yes face symmetric Mouth: Normal oral and palatal mucosa present, lip normal and tongue normal Throat: Yes posterior oropharynx normal, No peritonsillar mass, No postnasal drainage, No uvular edema and No cobblestoning Eyes General: appearance normal, both eyes and all related structures Neck Neck: Yes normal visual inspection, Yes full ROM, Yes no lymphadenopathy, Yes trachea midline, Yes supple and No anterior neck swelling Chest Chest palpation & inspection: normal palpation of entire chest wall Resp Effort & Inspection: normal respiratory effort, able to speak in complete sentences, no audible wheezes, Actively coughing ( frequent) Quality: dry, no grunting, not labored, no nasal flaring, no respiratory distress, no retractions, no stridor, no tripod positioning, no use of accessory muscles, No prolonged expiratory phase and symmetric chest movement Auscultation: clear to auscultation bilaterally, no crackles, no rales, no rhonchi, no wheezes, lung sounds not diminished and No rub present Cardio Rate: regular rate Rhythm: regular rhythm Skin Other: Good color, warm and dry Neuro General: patient oriented x3 Psych Appearance: grossly normal Mental Status: mental status grossly normal Speech and movement: Normal speech and movement present Affect: normal affect Attitude: cooperative Thought process: Normal thought process present Insight: Good insight present (Psych) Judgement: Good judgement present (Psych) Results Reviewed Results Reviewed: reviewed two view chest x-ray showing no acute cardiopulmonary disease Assessment & Plan Assessment & Plan (1) Acute tracheobronchitis: Code(s): J20.9 - Acute bronchitis, unspecified Plan Patient is a 53-year-old female comes the walk-in clinic complaining of Coughing fits. She initially had productive phlegm, but now has a persistent dry cough, with generalized throat and sternal burning sensation with cough. Two-view chest x-ray today shows no acute cardiopulmonary issues. She is stable today, with no shortness of breath or respiratory distress symptoms, and has no underlying compromising issues. Her symptoms seem consistent with mildly reactive airway possibly due to what seems like tracheobronchitis that has become more reactive in nature. She declined steroid, so she will take naproxen instead, and I will write her for albuterol inhaler for use as needed. I did not do respiratory virus panel today, as she is already 2 weeks into symptoms and was negative for COVID at the onset. She knows to follow up if symptoms persist or worsen, and to go to the emergency department with worrisome symptoms. Orders: Orders XR chest 2V Today R05.9 - Cough, unspecified Medications: New albuterol sulfate 90 mcg/actuation 1 inh inhalation QID PRN 8.5 grams 0RF shortness of breath or wheezing naproxen 500 mg PO BID 14 days PRN 28 tabs 0RF pain azithromycin take 500 mg today (day 1), then 250 mg for 4 days (days 2-5) PO 6 tabs 0RF Coding Level of Care Code Est Pt Level 4 (35082) Diagnoses Acute tracheobronchitis J20.9
== END 2023-05-18 11:19 | disposition home or self-care (01) ==
PROVIDERS: PCP Internal Medicine; Visit Provider Physician Assistant Medical
DX: J20.9 Acute bronchitis, unspecified (principal)
CPT/HCPCS: 99051; 99214

== ENCOUNTER 2023-05-18 10:52 | Outpatient (REF) | payer OTHER, SELFPAY ==
--- NOTE | ~2023-05-18 | XR_ITS ---
EXAMINATION: XR chest 2V CLINICAL INFORMATION: Reason for Exam R05.9 - Cough, unspecified COMPARISON: Prior chest x-ray November 2020 TECHNIQUE: XR chest 2V, 2 Views Lungs and Anais: Both lungs are clear. Opacity at right lung apex likely superimposed soft tissue of the neck. Unchanged. Pleura: Normal. Costophrenic angles are sharp. No pneumothorax. Heart: The heart is normal in size. Mediastinum: The mediastinum is within normal limits.. Bones: Skeletal structures included are normal for patient's age. XR/XR chest 2V IMPRESSION: No radiographic evidence of acute cardiopulmonary disease. If patient remain symptomatic consider correlation with follow-up low-dose chest CT.
== END 2023-05-18 10:53 | disposition home or self-care (01) ==
LOC: HO.HMGCX 10:52
PROVIDERS: PCP Internal Medicine; Visit Provider Physician Assistant Medical
DX: R05.9 Cough, unspecified (principal)
CPT/HCPCS: 71046

== ENCOUNTER 2023-06-04 13:51 | Outpatient (AMB) | payer OTHER, SELFPAY ==
[2023-06-04 14:02] VITALS: BP 122/86; PULSE 85; RESP 16; O2SAT 99; BMI 29.2
--- NOTE | 2023-06-04 14:02 | MHC.PC.OV ---
Vital Signs 06/04/23 14:02 Height 5 ft 5 in Weight 175 lb 8 oz BMI 29.2 BP 122/86 Blood Pressure Location Lt brachial Position Sitting Respiration 16 Pulse 85 Pulse Source Pulse Oximeter Pulse Oximetry (%) 99 Oxygen Delivery Method Room Air Intake Visit Reasons: Ongoing dry cough Intake Note: Pt is here for chronic cough for six weeks with chest pain due to the itchiness in the mid-chest area. Pt denies any COVID exposure and feel tired unable to sleep at night. Pt is requesting another set of antibiotic for more days. Human Resources Vice President Required: No Accompanied by: Self / Same As Patient Allergies Penicillins Allergy (Intermediate, Verified 06/04/23 14:06) Rash, Swelling fluoxetine Adverse Reaction (Intermediate, Verified 06/04/23 14:06) Swelling Tobacco use date assessed: 01/29/23 Dental Screening Dental Screen Date: 06/04/23 Did you have a dental visit in the last 12 months?: Yes Did you have a dental problem in the last 6 months where you did not have access to dental care?: No Was dental information given to patient?: Patient has dentist HPI Ongoing dry cough HPI Details Patient is a 53-year-old female here today for problem visit. This is the 1st time I am meeting this 53-year-old female with a past medical history significant for polyarthralgia, fibromyalgia, anemia, hyper cholesterol. She has had a cough finish Ali productive over the last 6 weeks. Has been seen at the walk-in clinic and was sent for x-ray which was unremarkable. She was started on antibiotics and albuterol inhaler. Unfortunately continues with a cough. She denies any fevers or chills, wheezing or fatigue. [facility] Medical History Hx of vertigo Fibromyalgia Alopecia Hearing deficit Encounter for screening colonoscopy Vertigo Colon cancer screening Laryngitis Cough Migraine Meniere disease Raynauds phenomenon Hypercholesterolemia Chronic low back pain Anemia Surgical History Hx of tubal ligation Family History Father Diabetes Hypertension Mother Hypertension Maternal Aunt Myocardial infarction Maternal Uncle Myocardial infarction Social History Household Members: Significant Other and Children Housing: House Are you a primary senior care specialist to a significant other at home: Yes (mother) Do you presently have visiting nurse or other home services: No Alcohol intake: never Patient Tobacco Use Status: Never used Tobacco e-Cigarette/Vaping Use: Never Used Second Hand Smoke Exposure: No service: No Current occupational status: employed Cognitive needs: No Hearing needs: No Vision needs: No Questionnaire Thrive Questionnaire Date Thrive assessed: 10/29/22 VALENTÍN-7 AMB Questionnaire VALENTÍN-7 Date VALENTÍN - 7 assessed: 10/29/22 Source: Developed by Drs. Blayne Esqueda, Bernice Heck, Chivo Pete and colleagues, with an educational lynette from [employer]. Review of Systems Const Denies headache(s) Eyes Denies loss of vision ENT Denies vertigo, Denies dizziness, Denies headache(s) and Denies sore throat Card Denies chest pain, Denies leg edema and Denies lightheadedness Resp Reports cough, Denies hemoptysis and Denies wheezing GI Denies abdominal pain, Denies melena, Denies constipation, Denies diarrhea and Denies vomiting Denies urinary frequency, Denies dysuria and Denies urinary urgency Musc Denies arthralgias, Denies joint swelling, Denies numbness and Denies tingling Neuro Denies Abnormal speech present, Denies behavioral changes, Denies vertigo, Denies dizziness, Denies headache(s), Denies loss of vision, Denies memory loss, Denies numbness and Denies tingling Psych Denies anxiety, Denies behavioral changes, Denies depression, Denies memory loss and Denies panic attacks Felipe/Lymph Denies easy bleeding and Denies easy bruising Aller/Immun Denies wheezing Physical exam (Primary Care) Vital Signs: Last Vital Signs Pulse 85 06/04/23 14:02 Resp 16 06/04/23 14:02 BP 122/86 06/04/23 14:02 Pulse Ox 99 06/04/23 14:02 Oxygen Delivery Method Room Air 06/04/23 14:02 BMI result Body Mass Index 29.2 Tobacco/Smoking Status: Tobacco use Status Tobacco use date assessed 01/29/23 06/04/23 14:12 Patient Tobacco Use Status Never used Tobacco 06/04/23 14:12 e-Cigarette/Vaping Use Never Used 06/04/23 14:12 Thrive Assessment: Date of Thrive Assessment Date Thrive assessed 10/29/22 06/04/23 14:12 Const General: healthy appearing, no acute distress, alert and awake Nutritional Appearance: well nourished Orientation/consciousness: oriented to person, oriented to place and oriented to time HENMT Ears: TM's normal bilaterally General nose exam: Normal nasal mucous membranes and turbinates present Eyes Conjunctivae: conjunctivae normal Sclerae: sclerae normal Pupils: Equal, round and reactive pupils present Neck Neck: Yes no lymphadenopathy and Yes no JVD Thyroid: Thyroid normal Carotids: no bruits Resp Other: OCCASIONAL BRONCHIAL LIKE COUGH DURING EXAM Effort & Inspection: normal respiratory effort, Actively coughing and not tachypneic Auscultation: no crackles, no rales, no rhonchi and no wheezes Cardio Rate: regular rate Rhythm: regular rhythm Heart sounds: no murmurs and normal S1 and S2 GI Palpation (GI): Soft to palpation, nontender, no hepatomegaly and no splenomegaly Auscultation: normal bowel sounds Skin General skin exam: no rashes or lesions noted and dry skin Neuro General: oriented to person, oriented to place and oriented to time Cranial nerves: Yes Equal, round and reactive pupils present Speech: No Abnormal speech present Gait exam (Neuro): Normal gait present Motor exam (neuro): no tremor noted Extrem Right upper extremity: full ROM Left upper extremity: full ROM Right lower extremity: full ROM; no edema Left lower extremity: full ROM; no edema Psych Mental Status: mental status grossly normal Speech and movement: Normal speech and movement present Affect: normal affect Attitude: cooperative Thought process: Normal thought process present Assessment and Plan Assessment & Plan (1) Acute bronchitis: Code(s): J20.9 - Acute bronchitis, unspecified Qualifiers: Bronchitis organism: unspecified organism Qualified Code(s): J20.9 - Acute bronchitis, unspecified Plan: Patient's signs and symptoms of cough last 6 weeks most consistent with a bronchitis likely postviral cough syndrome. Will supply with prednisone taper round of antibiotic and cough suppressant medication. Will get repeat x-ray to evaluate pulmonary infiltrate. Orders: Orders XR chest 2V Today J20.9 - Acute bronchitis, unspecified Medications: New codeine-guaifenesin 10-100 mg/5 mL 5 mL PO Q6H 5 days PRN 120 mL 0RF cough J20.9 - Acute bronchitis, unspecified doxycycline monohydrate 150 mg PO BID 7 days 14 caps 0RF J20.9 - Acute bronchitis, unspecified prednisone take 3 tabs x 3 days, 2 tabs x3days, 1 tab x 3days 10 mg PO DIRECTED 18 tabs 0RF 9 days J20.9 - Acute bronchitis, unspecified Discontinued azithromycin Discontinued Reason: Doctor's Order take 500 mg today (day 1), then 250 mg for 4 days (days 2-5) PO 6 tabs 0RF Coding Level of Care Code Est Pt Level 3 (34556) Diagnoses Acute bronchitis, unspecified organism J20.9 Bronchitis organism: unspecified organism
== END 2023-06-04 14:24 | disposition home or self-care (01) ==
PROVIDERS: PCP Internal Medicine; Visit Provider Physician Assistant
DX: J20.9 Acute bronchitis, unspecified (principal)
CPT/HCPCS: 99213

== ENCOUNTER 2023-06-04 14:28 | Outpatient (REF) | payer OTHER, SELFPAY ==
--- NOTE | ~2023-06-04 | XR_ITS ---
EXAMINATION: XR CHEST CLINICAL INFORMATION: Acute bronchitis. COMPARISON: May 18, 2023. TECHNIQUE: 2 views of the chest were obtained. FINDINGS: No significant abnormality is noted involving the heart, lungs, mediastinum, or soft tissues. Mild thoracic kyphosis and mild disc degenerative changes of the thoracic spine, similar compared with prior. XR/XR chest 2V IMPRESSION: No acute finding.
== END 2023-06-04 14:29 | disposition home or self-care (01) ==
LOC: HO.XRAY 14:28
PROVIDERS: PCP Internal Medicine; Visit Provider Physician Assistant
DX: J20.9 Acute bronchitis, unspecified (principal)
CPT/HCPCS: 71046

== ENCOUNTER 2023-09-21 08:05 | Outpatient (REF) | payer OTHER, SELFPAY | END 2023-09-21 08:06 | disposition home or self-care (01) | LOC: HO.MAMMO 08:05 | PROVIDERS: PCP Internal Medicine; Visit Provider Internal Medicine | DX: Z12.31 Encounter for screening mammogram for malignant neoplasm of breast (principal) | CPT/HCPCS: 77063; 77067 ==

== ENCOUNTER → 2023-09-21 08:30 | Outpatient (BNV) | payer OTHER, SELFPAY | PROVIDERS: PCP Internal Medicine; Visit Provider Radiology Diagnostic Radiology | DX: Z12.31 Encounter for screening mammogram for malignant neoplasm of breast (principal) | CPT/HCPCS: 77063; 77067 ==

== ENCOUNTER 2023-11-05 15:55 | Outpatient (AMB) | payer OTHER, SELFPAY ==
--- NOTE | 2023-11-05 16:15 | A.OFFPC_ITS ---
Vital Signs 11/05/23 16:16 Height 5 ft 5 in Weight 173 lb BMI 28.8 BP 128/68 Blood Pressure Location Lt brachial Position Sitting Pulse 85 Pulse Source Pulse Oximeter Pulse Oximetry (%) 98 Oxygen Delivery Method Room Air Intake Visit Reasons: pe Allergies Penicillins Allergy (Intermediate, Verified 11/05/23 16:16) Rash, Swelling fluoxetine Adverse Reaction (Intermediate, Verified 11/05/23 16:16) Swelling Medication List - Last Reconciled 11/05/23 by Starr Michaud MD albuterol sulfate 90 mcg/actuation 1 inh inhalation QID PRN amitriptyline 25 mg PO BEDTIME cyclobenzaprine 5 - 10 mg (1 - 2 x 5 mg) PO BEDTIME PRN estradiol 0.01%(0.1mg/gram) 1 g vaginal 2XW ibuprofen 800 mg PO TID PRN 90 days magnesium 750 mg PO .QOD melatonin 10 mg PO BEDTIME PRN multivitamin 1 tab PO DAILY vit A and D3 in cod liver oil 1,250-135 unit caps PO Tobacco use date assessed: 11/05/23 Dental Screening Dental Screen Date: 11/05/23 Did you have a dental visit in the last 12 months?: Yes Did you have a dental problem in the last 6 months where you did not have access to dental care?: No Was dental information given to patient?: Patient has dentist HPI pe HPI Details 53-year-old overweight female with gener alized anxiety disorder hypercholesterolemia anemia and insomnia last seen in January 2023. Patient's mammogram is up-to-date colonoscopy up-to-date. Patient has seen Rheumatology in February low-grade anemia leukopenia positive LENIN no signs of active inflammatory arthritis presently consistent with fibromyalgia. has had hearing test [facility] Medical History Hx of vertigo Fibromyalgia Alopecia Hearing deficit Encounter for screening colonoscopy Vertigo Colon cancer screening Laryngitis Cough Migraine Meniere disease Raynauds phenomenon Hypercholesterolemia Chronic low back pain Anemia Surgical History Hx of tubal ligation Family History (Updated 11/05/23 @ 16:18 by Audrey Fraga CMA) Father Diabetes Hypertension Mother Hypertension Maternal Aunt Myocardial infarction Maternal Uncle Myocardial infarction Social History (Reviewed 10/10/23 @ 14:12 by MARTIN Carrasquillo Household Members: Significant Other and Children Housing: House Are you a primary care manager to a significant other at home: Yes (mother) Do you presently have visiting nurse or other home services: No Alcohol intake: never Patient Tobacco Use Status: Never used Tobacco e-Cigarette/Vaping Use: Never Used Second Hand Smoke Exposure: No service: No Current occupational status: employed Cognitive needs: No Hearing needs: No Vision needs: No Questionnaire PHQ-9 Over the last 2 weeks, how often have you been bothered by any of the following problems? 1. Little interest or pleasure in doing things: several days 2. Feeling down, depressed, or hopeless: several days 3. Trouble falling or staying asleep, or sleeping too much: not at all 4. Feeling tired or having little energy: not at all 5. Poor appetite or overeating: not at all 6. Feeling bad about yourself - or that you are a failure or have let yourself or your family down: not at all 7. Trouble concentrating on things, such as reading the newspaper or watching television: not at all 8. Moving or speaking so slowly that other people could have noticed. Or the opposite - being so fidgety or restless that you have been moving around a lot more than usual: not at all 9. Thoughts that you would be better off or of hurting yourself in some way: not at all Total score: 2 Depression Screening Interpretation: Negative Depression Screening Done: Yes Source: Developed by Drs. Blayne Esqueda, Bernice Heck, Chivo Pete and colleagues, with an educational lynette from [employer]. Thrive Questionnaire Date Thrive assessed: 11/05/23 I am a: Patient What is your living situation today?: I have a steady place to live Within the past 12 months, did the food you bought not last and you didn't have the money to get more?: Never true Within the past 12 months, did you worry whether your food would run out before you got money to buy more?: Never true Do you have trouble paying for medicines?: No Do you have trouble getting transportation to medical appointments?: No Do you have trouble paying your heating and electricity bill?: No Do you have trouble taking care of your child, family member or friend?: No Do you have trouble with day-to-day activities such as bathing, preparing meals, shopping, managing finances, etc.?: No Are you currently unemployed and looking for a job?: No Are you interested in more education?: No Currently or been in a relationship where the following occur: no concerns reported THRIVE Score: 0 VALENTÍN-7 AMB Questionnaire VALENTÍN-7 Date VALENTÍN - 7 assessed: 10/29/22 Source: Developed by Drs. Blayne Esqueda, Bernice Heck, Chivo Pete and colleagues, with an educational lynette from [employer]. Review of Systems Const Denies poor appetite and Denies weakness Eyes Denies no additional complaints ENT Reports Normal hearing present, Denies dizziness, Denies nasal congestion, Denies tinnitus and Denies sore throat Card Denies chest pain, Denies syncope, Denies rapid heart rate and Denies dyspnea Resp Denies cough and Denies dyspnea GI Denies change in stool character, Reports constipation, Denies diarrhea, Denies nausea and Denies vomiting Denies urinary frequency, Denies difficulty voiding and Denies dysuria Neuro Reports Normal hearing present, Denies confusion, Denies dizziness, Denies syncope and Denies weakness Psych Denies confusion Physical exam (Primary Care) Vital Signs: Last Vital Signs Pulse 85 11/05/23 16:16 BP 128/68 11/05/23 16:16 Pulse Ox 98 11/05/23 16:16 Oxygen Delivery Method Room Air 11/05/23 16:16 BMI result Body Mass Index 28.8 Tobacco/Smoking Status: Tobacco use Status Tobacco use date assessed 11/05/23 11/05/23 16:34 Patient Tobacco Use Status Never used Tobacco 11/05/23 16:16 e-Cigarette/Vaping Use Never Used 11/05/23 16:16 PHQ-9: PHQ-9 Score PHQ-9: Total score 2 11/05/23 16:34 Depression Screening Interpretation: Negative Thrive Assessment: Date of Thrive Assessment Date Thrive assessed 11/05/23 11/05/23 16:34 Currently or been in a relationship where the following occur: no concerns reported Const General: No confusion Orientation/consciousness: No confusion HENMT Head: Yes normocephalic Ears: external ears normal and TM's normal bilaterally Face and sinus: Yes normal facial exam Mouth: moist mucous membranes Throat: Yes tonsils normal Eyes Conjunctivae: conjunctivae normal Pupils: Equal, round and reactive pupils present and Pupil accommodation reflex normal Direct Ophthalmoscopy: normal light reflex Neck Neck: No lymphadenopathy Thyroid: Thyroid normal Chest Chest palpation & inspection: normal inspection of the chest Resp Effort & Inspection: normal respiratory effort and no audible wheezes Auscultation: clear to auscultation bilaterally, no crackles, no wheezes and lung sounds not diminished Cardio Rate: regular rate Rhythm: regular rhythm Peripheral pulses: radial pulses present and dorsalis pedis present GI Palpation (GI): no masses Auscultation: normal bowel sounds and normoactive bowel sounds Rectal Exam - Female: deferred Skin General skin exam: no rashes or lesions noted Rashes: no rashes Neuro General: No confusion Cranial nerves: Yes Equal, round and reactive pupils present and Yes Normal hearing present Cognition (Neuro): normal cognition Gait exam (Neuro): Normal gait present Motor exam (neuro): 5/5 motor strength present throughout Deep tendon reflexes (DTR's): Right brachioradialis reflex intensity grade: 2+, Left brachioradialis reflex intensity grade: 2+, Right patellar reflex intensity grade: 2+ and Left patellar reflex intensity grade: 2+ Extrem General: No edema Assessment and Plan Assessment & Plan (1) Annual physical exam: Code(s): Z00.00 - Encounter for general adult medical examination without abnormal findings (2) Overweight (BMI 25.0-29.9): Onset Date: ~03/04/23 Code(s): E66.3 - Overweight Plan: Diet and exercise (3) Chronic leukopenia: Code(s): D72.819 - Decreased white blood cell count, unspecified Plan: Continuing to monitor (4) Fibromyalgia: Code(s): M79.7 - Fibromyalgia Plan: Patient has met with Rheumatology and workup so far has revealed negative results. (5) Generalized anxiety disorder: Code(s): F41.1 - Generalized anxiety disorder Plan: Continue with present medication (6) Hypercholesterolemia: Code(s): E78.00 - Pure hypercholesterolemia, unspecified Plan: Avoid fried foods, chicken skin, eggs, butter margarine, pastries and meat. Be it pork or beef they have a lot of cholesterol LDL goal of less than 130 and triglyceride of less than 150 (7) Anemia: Code(s): D64.9 - Anemia, unspecified Plan: Continuing to monitor (8) Insomnia: Code(s): G47.00 - Insomnia, unspecified (9) Insomnia: Code(s): G47.00 - Insomnia, unspecified (10) Bunion: Comment: R foot Code(s): M21.619 - Bunion of unspecified foot Orders: Orders Complete Blood Count Auto Diff Today E78.00 - Pure hypercholesterolemia, unspecified Free T4 (Free Thyroxine) Today E78.00 - Pure hypercholesterolemia, unspecified Lipid Panel Today E78.00 - Pure hypercholesterolemia, unspecified Vitamin D 25-OH Total Today E78.00 - Pure hypercholesterolemia, unspecified C Reactive Protein Today E78.00 - Pure hypercholesterolemia, unspecified Magnesium Today G47.00 - Insomnia, unspecified Ferritin Today D64.9 - Anemia, unspecified Comprehensive Met. Panel Today E78.00 - Pure hypercholesterolemia, unspecified Thyroid Stimulating Hormone Today E78.00 - Pure hypercholesterolemia, unspecified Vitamin B12 and Folate Today E78.00 - Pure hypercholesterolemia, unspecified Erythrocyte Sedimentation Rate Today E78.00 - Pure hypercholesterolemia, unspecified IRON PROFILE Today D64.9 - Anemia, unspecified Reticulocyte Count Today D64.9 - Anemia, unspecified Referrals Podiatry Referral M21.619 - Bunion of unspecified foot Medications: New zolpidem ER 6.25 mg PO BEDTIME 14 tabs 0RF G47.00 - Insomnia, unspecified Refilled ibuprofen 800 mg PO TID 90 days PRN 90 tabs 0RF Pain M79.7 - Fibromyalgia cyclobenzaprine 5 - 10 mg (1 - 2 x 5 mg) PO BEDTIME PRN 30 tabs 0RF muscle spasm M79.7 - Fibromyalgia Coding Level of Care Code Est Pt Prev Care 40-64y(63844) Diagnoses Annual physical exam Z00.00 Overweight (BMI 25.0-29.9) E66.3 Chronic leukopenia D72.819 Fibromyalgia M79.7 Generalized anxiety disorder F41.1 Hypercholesterolemia E78.00 Anemia D64.9 Insomnia G47.00 Bunion M21.619
[2023-11-05 16:16] VITALS: BP 128/68; PULSE 85; O2SAT 98; BMI 28.8
== END 2023-11-05 17:34 | disposition home or self-care (01) ==
PROVIDERS: PCP Internal Medicine; Visit Provider Internal Medicine
DX: Z00.00 Encounter for general adult medical examination without abnormal findings (principal); E66.3 Overweight; D72.819 Decreased white blood cell count, unspecified; M79.7 Fibromyalgia; F41.1 Generalized anxiety disorder; E78.00 Pure hypercholesterolemia, unspecified; D64.9 Anemia, unspecified; G47.00 Insomnia, unspecified; M21.619 Bunion of unspecified foot
CPT/HCPCS: 99396

== ENCOUNTER 2024-02-22 07:15 | Outpatient (REF) | payer OTHER, SELFPAY ==
[2024-02-22 07:31] LABS: MANUAL DIFF FLAG NO
[2024-02-22 09:11] LABS: Basophils Percent Auto 0.2 % (0-2); Eosinophils Absolute Auto 0.1 X10*3/uL (0.0-0.4); Eosinophils Percent Auto 1.6 % (0-4); Hematocrit 35.3 % (37.0-47.0); Hemoglobin 11.6 g/dl (12.0-16.0); Imm Gran Abs Auto 0.01 X10*3/uL (0.00-0.03); Imm Gran Pct Auto 0.2 % (0.0-0.4); Immature Retic Fraction 8.8 % (3.0-15.9); Lymphocytes Absolute Auto 1.7 X10*3/uL (1.2-4.9); Lymphocytes Percent Auto 40.1 % (20-40); Mean Corpuscular HGB Conc 32.9 g/dl (31.0-35.0); Mean Corpuscular Volume 88.3 fL (80.0-98.0); Mean Platelet Volume 10.2 fL (9.4-12.3); Monocytes Absolute Auto 0.3 X10*3/uL (0.1-1.2); Monocytes Percent Auto 6.5 % (2-11); Neutrophils Absolute Auto 2.2 x10*3/uL (2.0-8.3); Neutrophils Percent Auto 51.4 % (45-73); Platelet Count 236 X10*3/uL (160-400); Retic HGB Equivalent 32.8 pg (30.0-35.0); Reticulocyte Percent 1.2 % (0.5-1.8); Reticulocytes Absolute 0.048 X10*6/uL (0.026-0.095); White Blood Count 4.3 X10*3/uL (4.8-10.8)
[2024-02-22 09:47] LABS: Alanine Aminotransferase 25 U/L (0-31); Albumin Level 4.1 g/dL (3.5-5.0); Alkaline Phosphatase 94 U/L (39-117); Anion Gap 12 (12-20); Aspartate Amino Transferase 16 U/L (5-31); Bilirubin Total 0.4 mg/dL (0.0-1.0); Blood Urea Nitrogen 15 mg/dL (9-16); C Reactive Protein 1.17 mg/dL (< or = 0.50); Calcium 9.1 mg/dL (8.4-10.2); Carbon Dioxide 24 mmol/L (22-29); Chloride 109 mmol/L (96-108); Cholesterol 191 mg/dL (<200); Estimated Glomerular Filt Rate > 60; Glucose Random 89 mg/dL (60-115); HDL Cholesterol 43 mg/dL (>40); Iron 83 mcg/dL (30-160); LDL Cholesterol Calculated 121 mg/dL (<100); Magnesium 2.1 mg/dL (1.6-2.6); Percent Iron Saturation 29 % (15-50); Potassium 4.2 mmol/L (3.3-5.1); Sodium 141 mmol/L (135-145); Total Iron Binding Capacity 285 mcg/dL (228-428); Total Protein 6.8 g/dL (6.5-8.0); Triglycerides 135 mg/dL (<150); Unsaturated Iron Binding 202 ug/dL
[2024-02-22 10:05] LABS: Erythrocyte Sedimentation Rate 34 MM/HR (0-20)
[2024-02-22 10:07] LABS: Ferritin 60 ng/mL (10-250); Thyroid Stimulating Hormone 1.54 uIU/mL (0.32-4.0)
[2024-02-22 10:23] LABS: Folate 12.2 ng/mL (> or = 4.0); Vitamin B12 580 pg/mL (200-900)
== END 2024-02-22 07:16 | disposition home or self-care (01) ==
LOC: HO.LAB 07:15
PROVIDERS: PCP Internal Medicine; Visit Provider Internal Medicine
DX: E78.00 Pure hypercholesterolemia, unspecified (principal); G47.00 Insomnia, unspecified; D64.9 Anemia, unspecified
CPT/HCPCS: 36415; 80053; 80061; 82306; 82607; 82728; 82746; 83540; 83735; 84439; 84443; 85025; 85045; 85652; 86140

== ENCOUNTER 2024-02-25 16:01 | Outpatient (AMB) | payer OTHER, SELFPAY ==
--- NOTE | 2024-02-25 15:59 | MHC.PC.OV ---
Intake Visit Reasons: insomnia/[phone] Cell Phone Hotel Night Auditor Required: No Allergies Penicillins Allergy (Intermediate, Verified 02/25/24 16:00) Rash, Swelling fluoxetine Adverse Reaction (Intermediate, Verified 02/25/24 16:00) Swelling Medication List - Last Reconciled 02/25/24 by Starr Michaud MD albuterol sulfate 90 mcg/actuation 1 inh inhalation QID PRN amitriptyline 25 mg PO BEDTIME cyclobenzaprine 5 - 10 mg (1 - 2 x 5 mg) PO BEDTIME PRN estradiol 0.01%(0.1mg/gram) 1 g vaginal 2XW flaxseed oil 1,000 mg PO DAILY ibuprofen 800 mg PO TID PRN 90 days magnesium 750 mg PO .QOD melatonin 10 mg PO BEDTIME PRN multivitamin 1 tab PO DAILY Tobacco use date assessed: 11/05/23 Dental Screening Dental Screen Date: 11/05/23 HPI insomnia/[phone] Cell Phone HPI Details 54-year-old overweight female with a history of chronic leukopenia fibromyalgia generalized anxiety disorder hypercholesterolemia coming in for follow-up. Last seen in 11/13/2023. Patient's mammogram is up-to-date colonoscopy was normal. The 10/2022 patient's blood work was just done inflammation markers are elevated still. [facility] Medical History Hx of vertigo Fibromyalgia Alopecia Hearing deficit Encounter for screening colonoscopy Vertigo Colon cancer screening Laryngitis Cough Migraine Meniere disease Raynauds phenomenon Hypercholesterolemia Chronic low back pain Anemia Surgical History Hx of tubal ligation Family History (Updated 11/05/23 @ 16:18 by Audrey Fraga CMA) Father Diabetes Hypertension Mother Hypertension Maternal Aunt Myocardial infarction Maternal Uncle Myocardial infarction Social History Household Members: Significant Other and Children Housing: House Are you a primary urgent care to a significant other at home: Yes (mother) Do you presently have visiting nurse or other home services: No Alcohol intake: never Patient Tobacco Use Status: Never used Tobacco e-Cigarette/Vaping Use: Never Used Second Hand Smoke Exposure: No service: No Current occupational status: employed Cognitive needs: No Hearing needs: No Vision needs: No Questionnaire Thrive Questionnaire Date Thrive assessed: 11/05/23 VALENTÍN-7 AMB Questionnaire VALENTÍN-7 Date VALENTÍN - 7 assessed: 10/29/22 Source: Developed by Drs. Blayne Esqueda, Bernice Heck, Chivo Pete and colleagues, with an educational lynette from [employer]. Physical exam (Primary Care) Tobacco/Smoking Status: Tobacco use Status Tobacco use date assessed 11/05/23 02/25/24 16:01 Patient Tobacco Use Status Never used Tobacco 02/25/24 16:01 e-Cigarette/Vaping Use Never Used 02/25/24 16:01 Thrive Assessment: Date of Thrive Assessment Date Thrive assessed 11/05/23 02/25/24 16:01 Telehealth Telehealth Telehealth Platform: Telephone Location of provider rendering services: practice address Location of patient: address on file Patient Identification confirmed using: Name, : Yes Telehealth method: voice only Patient verbally consented to treatment: Yes Patient verbally consented to billing insurance company: Yes Patient informed of any privacy concerns related to visit: Yes Minutes spent on Phone/Video with Pt.: 25 Assessment and Plan Assessment & Plan (1) Polyarthralgia: Code(s): M25.50 - Pain in unspecified joint Plan: Continuing to monitor noted to have elevated inflammatory markers. Patient has met with Rheumatology is and did not find any inflammatory arthritis seen. Patient does complain a lot about pain. With the inflammatory markers elevated discussed about patient's diet. Discussed about keeping well hydrated keeping eating healthy and keeping active. Discussed about foods that are to decrease inflammation like [place] is fish oatmeal all if oil nuts. Things to avoid package meets, red meat, fried chicken fast foods desserts like cakes bread and pasta made of white flour. (2) Hypercholesterolemia: Code(s): E78.00 - Pure hypercholesterolemia, unspecified Plan: Avoid fried foods, chicken skin, eggs, butter margarine, pastries and meat. Be it pork or beef they have a lot of cholesterol LDL goal of less than 130 and triglyceride of less than 150 (3) Generalized anxiety disorder: Code(s): F41.1 - Generalized anxiety disorder Plan: Stable (4) Anemia: Code(s): D64.9 - Anemia, unspecified Plan: Stable continue to monitor. (5) Insomnia: Code(s): G47.00 - Insomnia, unspecified Plan: Continue with present medication as needed Orders: Orders Complete Blood Count Auto Diff 6 Months M79.7 - Fibromyalgia Comprehensive Met. Panel 6 Months M79.7 - Fibromyalgia Thyroid Stimulating Hormone 6 Months M79.7 - Fibromyalgia Vitamin B12 and Folate 6 Months M79.7 - Fibromyalgia Free T4 (Free Thyroxine) 6 Months M79.7 - Fibromyalgia Lipid Panel 6 Months E78.00 - Pure hypercholesterolemia, unspecified, M79.7 - Fibromyalgia Vitamin D 25-OH Total 6 Months M79.7 - Fibromyalgia Magnesium 6 Months M79.7 - Fibromyalgia Erythrocyte Sedimentation Rate 6 Months M79.7 - Fibromyalgia C Reactive Protein 6 Months M79.7 - Fibromyalgia Medications: Refilled amitriptyline 25 mg PO BEDTIME 90 tabs 0RF Coding Level of Care Code Tele Est Pt Level 4 (46290) Diagnoses Polyarthralgia M25.50 Hypercholesterolemia E78.00 Generalized anxiety disorder F41.1 Anemia D64.9 Insomnia G47.00
== END 2024-02-25 17:49 | disposition home or self-care (01) ==
LOC: HO.HMGH 16:01
PROVIDERS: PCP Internal Medicine; Visit Provider Internal Medicine
DX: M25.50 Pain in unspecified joint (principal); E78.00 Pure hypercholesterolemia, unspecified; F41.1 Generalized anxiety disorder; D64.9 Anemia, unspecified; G47.00 Insomnia, unspecified
CPT/HCPCS: 99214

== ENCOUNTER 2024-04-18 07:06 | Outpatient (REF) | payer OTHER, SELFPAY ==
[2024-04-18 08:27] LABS: Lactate Dehydrogenase 121 U/L (122-220)
[2024-04-18 08:49] LABS: Carcinoembryonic Antigen < 1.73 ng/mL
[2024-04-21 08:28] LABS: CA-125 8 U/mL (<35)
[2024-04-24 17:43] LABS: Inhibin B <10 pg/mL
== END 2024-04-18 07:07 | disposition home or self-care (01) ==
LOC: HO.LAB 07:06
PROVIDERS: PCP Internal Medicine; Visit Provider Obstetrics & Gynecology Gynecology
DX: N83.202 Unspecified ovarian cyst, left side (principal)
CPT/HCPCS: 36415; 82378; 83520; 83615; 86304

== ENCOUNTER 2024-10-16 10:42 | Outpatient (REF) | payer OTHER, SELFPAY ==
--- OUTSIDE RECORDS SUMMARY | 2024-10-16 11:42 | XMS_ITS ---
Author Organization [facility] Address [address] [place] [address] Care Team Providers Care Applications Engineer Name Role Phone Starr Michaud Primary Care Provider Reta Alvarado [phone] REASON FOR VISIT BUY Pedag [employer] (red) #39 / L9 Encounters Encounter Location Date Provider Diagnosis [address] [address] 09/09/2024 Reta Howard Plan Of Treatment Next Appt Details Provider Name:Reta craft, 11/20/2024 12:00:00 PM, [address] [place] [address], [phone], Progress Notes * Tyesha WRENDOB:1970 (54 yo F)Acc No.[id number]:09/09/2024 Patient:?Tyesha WREN :1970???Age:54 Y???Sex:Female Address:[address] [place] [id number] * true * Date:? Generated for Beliai estelle/Antonia/eTransmitting on:?10/16/2024 11:42 AM EST
--- OUTSIDE RECORDS SUMMARY | 2024-10-16 11:42 | XMS_ITS ---
Author Organization [facility] Address [address] [place] [address] Care Team Providers Care Outside B2B Sales Name Role Phone JOANNA ROSADO M.D. Primary Care Provider Chelsi Spann Unavailable [phone] Allergies Allergen (clinical drug ingredient) Drug/Non Drug Allergy documented on EMR Reaction Allergy Type Onset Date Status PENICILLIN Swelling/Hives Drug Allergy A ctive fluoxetine FLUOXETINE Swelling Hands/Feet Drug Allergy Active Results Component Value Reference Range Notes Urinalysis Reviewed date:09/18/2024 01:13:40 PM Interpretation: Performing Lab: Notes/Report: NITRITE Neg PH 7.0 PROTEIN Small S.G 1.015 WBC Moderate GLUCOSE Neg KETONES Neg UROBILINOGEN Trace BILIRUBIN Trace BLOOD Neg Urinalysis, Complete-[id number] Reviewed date:09/20/2024 01:13:53 PM Interpretation: Performing Lab:[facility], [address] [place] [address], [place], Phone - [phone], Director - Delphine Notes/Report: Clinical Information:SRC: URINE Clinical Information:SRC: URINE Specific [place] 1.024 1.005-1.030 pH 7.0 5.0-7.5 Urine-Color Yellow Yellow Appearance Clear Clear WBC Esterase Negative Negative Protein Negative Negative/Trace Glucose Negative Negative Ketones Negative Negative Occult Blood Negative Negative Bilirubin Negative Negative Urobilinogen,Semi-Qn 1.0 0.2-1.0 mg/dL Nitrite, Urine Negative Negative Microscopic Examination Micr oscopic follows if indicated. Microscopic Examination See below: Micr oscopic was indicated and was performed. WBC None seen 0 - 5 /hpf RBC 0-2 0 - 2 /hpf Epithelial Cells (non renal) 0-10 0 - 10 /hpf Casts None seen None seen /lpf Crystals Present N/A Crystal Type Calcium Oxalate N/A Bacteria Many None seen/Few Urine Culture, Routine-[id number] Reviewed date:09/20/2024 01:13:36 PM Interpretation: Performing Lab:[facility], [address] [facility], [place], Phone - [phone], Director - Delphine Notes/Report: Clinical Information:SRC: URINE Clinical Information:SRC: URINE Urine Culture, Routine Final report Result 1 Culture shows less than 10,000 colony forming units of bacteria per milliliter of urine. This colony count is not generally considered to be clinically significant. PDF Report Reviewed date:09/20/2024 01:13:18 PM Interpretation: Performing Lab:[facility] [place], [address] [facility], [place], Phone - [phone], Director - Delphine Notes/Report: Clinical Information:SRC: URINE REASON FOR VISIT Annual INTENSIVIST Physical, Annual INTENSIVIST Physical 50-59* Medications Medication SIG (Take, Route, Frequency, Duration) Notes Start Date End Date Status Estradiol Vaginal Cream 0.01% 1 Gram to the affected area Vaginal/Vulva Twice a week for 90 days Please use good rx if cheaper for patient. ID: [id number], BIN: [id number], PCN: CRISTY, GROUP: [id number] 09/13/2023 Active Vitamin C 500 MG as directed Orally Active Vitamin B Complex - as directed Orally twice a week Active Anusol-HC 2.5 % 1 application to affected area Rectal Twice a day as needed for 30 day(s) 08/08/2018 Active Ibuprofen 800MG 1 ORAL as needed for -3 04/14/2014 Active Multivitamins 1 ORAL daily for -3 04/13/2013 Active Amitriptyline HCl 25 MG 1 tablet Orally Once a day Active Vitamin A 90095 UNIT 1 capsule with food or milk Orally 2-3 x a week Active Vitamin D 1000 UNIT 1 tablet Orally 2-3 x a week Active Melatonin 5 MG 1 tablet in the evening Orally Once a day for 30 day(s) Active Flexeril 10MG 1 NEEDED for -3 06/09/2014 Active Estradiol Vaginal Cream 0.01% 1 Gram to the affected area Vaginal/Vulva Twice a week for 90 Days 09/18/2024 Active Iron 325 (65 Fe) MG 1 tablet Orally Once a day for 30 day(s) Active Calcium 1 tab Oral for 14 days Active Social History Tobacco Use: Social History Observation Description Date Details (start date - stop date) Never Smoker NA - NA Sexual History Question Answer Notes Had sex in the past 12 months (vaginal, oral, or anal)? Yes with Men only Prevention strategies discussed: Other AUDIT-C (Standard) Question Answer Notes Did you have a drink contain ing alcohol in the past year? Yes How often did you have a dri nk containing alcohol in the past year? Never (0 point) How many drinks did you have on a typical day when you were drinking in the past year? 1 or 2 drinks (0 point) How often did you have six o r more drinks on one occasion in the past year? Less than monthly (1 point) Points 1 Interpretation Negative Tobacco Control (Standard) Question Answer Notes Tobacco use: Nonsmoker Vital Signs Temperature 97.2 degrees Fahrenheit 09/18/19 25 Blood pressure systolic 124 mm Hg 09/18/19 25 Blood pressure diastolic 74 mm Hg 025 Height 65 in 09/18/2024 Weight 176 lbs 09/18/2024 BMI 29.28 kg/m2 09/18/2024 Encounters Encounter Location Date Provider Diagnosis [address] [address] 09/18/2024 Chelsi Jeff Encounter for gynecological examination (general) (routine) without abnormal findings Z01.419 ; Encounter for screening mammogram for malignant neoplasm of breast Z12.31 ; Urgency of urination R39.15 ; Postmenopausal atrophic vaginitis N95.2 ; Personal history of other diseases of the female genital tract Z87.42 and Other ovarian cyst, left side N83.292 Assessments Encounter Date Diagnosis (ICD Code) Assessment Notes Treatment Notes Treatment Clinical Notes Section Notes 09/18/2024 Encounter for gynecological examination (general) (routine) without abnormal findings (ICD-10 - Z01.419) NO PAP TEST, DUE IN 2025. 09/18/2024 Encounter for screening mammogram for malignant neoplasm of breast (ICD-10 - Z12.31) REGULAR MAMMOGRAMS AND SBE'S WERE RECOMMENDED. 09/18/2024 Urgency of urination (ICD-10 - R39.15) OFFICIAL UA AND URINE C/S WERE ORDERED. IF NEGATIVE, WILL REFER TO UROLOGIST FOR EVALUATION OF CHRONIC URGENCY. IF POSITIVE, WILL PRESECRIBE APPROPRIATE ANTIBIOTIC. 09/18/2024 Postmenopausal atrophic vaginitis (ICD-10 - N95.2) CONTINUE ESTRADIOL CREAM. DETAILED INSTRUCTIONS WERE GIVEN. 09/18/2024 Personal history of other diseases of the female genital tract (ICD-10 - Z87.42) DISCUSSED PREVIOUSLY POSITIVE HR HPV AND SUBSEQUENTLY NEGATIVE HPV TYPING. 09/18/2024 Other ovarian cyst, left side (ICD-10 - N83.292) DISCUSSED PELVIC ULTRASOUND RESULTS AND NEGATIVE TUMOR MARKERS AND UNCHANGED CYST. THIS IS PROBABLY COMPLETELY BENIGN AND NOT WORRISOME. SUPSECT THIS IS JUST A CYST IC OVARY AND NOT AN OVARIAN CYST. Plan Of Treatment Medication Medication Name Sig Start Date Stop Date Notes Estradiol Vaginal Cream 0.01% 1 Gram to the affected area Vaginal/Vulva Twice a week for 90 Days 09/18/2024 Treatment Notes Assessment Notes Encounter for gynecological examination (general) (routine) without abnormal findings NO PAP TEST, DUE IN 2025. Encounter for screening mamm ogram for malignant neoplasm of breast REGULAR MAMMOGRAMS AND SBE'S WERE RECOMMENDED. Urgency of urination OFFICIAL UA AND URINE C/S WERE ORDERED. IF NEGATIVE, WILL REFER TO UROLOGIST FOR EVALUATION OF CHRONIC URGENCY. IF POSITIVE, WILL PRESECRIBE APPROPRIATE ANTIBIOTIC. Postmenopausal atrophic vaginitis CONTINUE ESTRADIOL CREAM. DETAILED INSTRUCTIONS WERE GIVEN. Personal history of other di seases of the female genital tract DISCUSSED PREVIOUSLY POSITIVE HR HPV AND SUBSEQUENTLY NEGATIVE HPV TYPING. Other ovarian cyst, left side DISCUSSED PELVIC ULTRASOUND RESULTS AND NEGATIVE TUMOR MARKERS AND UNCHANGED CYST. THIS IS PROBABLY COMPLETELY BENIGN AND NOT WORRISOME. SUPSECT THIS IS JUST A CYST IC OVARY AND NOT AN OVARIAN CYST. Pending Test Test Name Order Date MM Digital Mammo Screening 09/18/2024 Next Appt Details Follow Up: 1 Year, Reason: Provider Name:Chelsi payne, 09/24/2025 08:50:00 AM, [address], [address], [place], [address], Progress Notes * CAROLE WREN:1970 (54 yo F)Acc No.[id number]:09/18/2024 PROGRESS NOTES Patient:?SALMA WREN Appointment Provider:?Chelsi payne M.D. :1970???Age:54 Y???Sex:Female D ate:09/18/2024 Address:[address] [place] [address], [id number] Pcp:JOANNA ROSADO M.D. Subjective: * Chief Complaints: * ??? Annual INTENSIVIST PhysicalAnnua l INTENSIVIST Physical 50-59* * HPI: ???New/Follow-up Patient Consult:? PAT C/O URINARY URGENCY OF 4 MONTHS DURATION.? SHE HAS HAD THE URGE TO URINATE OFTEN AND URINATES ONLY A SMALL AMOUNT EACH TIME.? SHE DENIES DYSURIA, FLANK PAINS OR FEVER.?? SHE ENTERED MENOPAUSE IN 2014 AND USES ESTRADIOL CREAM FOR ATROPHIC VAGINITIS.? SHE DENIES DYSPAREUNIA.? SHE HAS BEEN 27 YEARS. HER PAP TEST IN 2016 WAS NEGATIVE BUT HPV POSITIVE.? REPEAT SUBSEQUENT PAP TESTS HAVE BEEN NEGATIVE AND HPV NEGATIVE INCLUDING HER LAST ONE IN 2022. HER LAST MAMMOGRAM DONE IN AUG 2023 SHOWED BREASTS ARE NOT DENSE AND WAS NORMAL.? SHE HAS ANOTHER APPT IN SEP 2024. SHE WAS FOUND TO HAVE A CYSTIC LEFT OVARRY MEASURING 3.5 CM IN 2020.? TUMOR MARKERS WERE NEGATIVE AND REPEAT PELVIC ULTRASOUND DONE IN 2023 SHOWED NO CHANGE.? SHE IS ASYMPTOMATIC. SHE HAD A COLONOSCOPY DONE IN 2022. PFIZER X 3. ???Annual:? Patient presents for annual exam, ages 50-59. ?General Health Maintenance:?Current breast complaints:?no breast pain, mass, discharge, or skin changes ?Urinary problems:?patient reports no urinary health problems or bowel health problems ?Calcium intake:?takes adequate calcium via diet and supplementation ?Significant INTENSIVIST problems:?no significant refrigeration tech symptoms or problems * ROS:?general:?no?chest pain.?no?palpitations.?no?headache.?no?cough.?no?shortness of breath.?no?fever.?no?unexplained weight loss.?no?nausea/vomiting.?no?change in bowel movements.?no blood in stool.?no?genitourinary complaints.?no?skin complaints.? * Medical History:? * [place] History:?/ Para?3/3.?Sexual activity?currently sexually active.?Last Pap Smear:?08/28/22 NIL, NEG HPV , 08/24/20 NIL, NEG HPV, 08/21/19 NIL, NEG HPV, 08/08/18 NIL, NEG HRHPV, 08/02/17 NIL, POS HRHPV, 05/2014.?Mammogram:?09/21/23, 08/2022 [place], 09/01/20 < 50% density, 08/14/19 < 50% density w/ add views, 08/2017 [facility], 07/10/2017 normal, 05/2016, 03/2015.?Abnormal Pap Smear:?2016 +HPV.?LMP and menses?[place] 04/2015. One Episode of bleeding in 02/2015.? Control:?bilateral tubal ligation.?Colonoscopy?Appt in September with GI.? * OB History:?Total pregnancies?3.?Total living children?3.?NVD?3.? * Surgical History:?Bilateral Tubal Ligation [place] Teeth Colonoscopy * Hospitalization/Major Diagno stic Procedure:?3 Vaginal Deliveries See Surgical Hx * Family History:?Mother: aliv e, well.?Father: alive, well.? * Social History:?Tobacco Use:?Tobacco Control (Standard)?Tobacco use:?Nonsmoker ???Sexual History:?Sexual History?Had sex in the past 12 months (vaginal, oral, or anal)??Yes ?with?Men only ?Prevention strategies discussed:?Other ?Details of Sexual History?Are you sexually active??Yes ???Drugs/Alcohol:?Drugs?Have you used drugs other than those for medical reasons in the past 12 months??No ???Miscellaneous:?Children: yes, 3. ?Domestic violence: no. ?Exercise: yes, walking. ?Home smoke detector use: yes. ?Marital status: single. ?Natural support system: yes. ?Occupation: Works full-time. ?Sexual abuse: no. ?Sexually active: yes, monogamous relationship. ?Verbal abuse: no. ???Drug/Alcohol:?AUDIT-C (Standard)?Did you have a drink containing alcohol in the past year??Yes ?How often did you have a drink containing alcohol in the past year??Never (0 point) ?How many drinks did you have on a typical day when you were drinking in the past year??1 or 2 drinks (0 point) ?How often did you have six or more drinks on one occasion in the past year??Less than monthly (1 point) ?Points?1 ?Interpretation?Negative * Medications:?TakingIron 325 (65 Fe) MG Tablet 1 tablet Orally Once a day Calcium 1 tab Oral Melatonin 5 MG Tablet 1 tablet in the evening Orally Once a day Flexeril 10MG 1 NEEDED Ibuprofen 800MG 1 ORAL as needed Multivitamins 30 1 ORAL daily Amitriptyline HCl 25 MG Tablet 1 tablet Orally Once a day Vitamin A 54913 UNIT Capsule 1 capsule with food or milk Orally 2-3 x a week Vitamin D 1000 UNIT Tablet 1 tablet Orally 2-3 x a week Vitamin C 500 MG Capsule as directed Orally Vitamin B Complex - Tablet as directed Orally twice a week Anusol-HC 2.5 % Cream 1 application to affected area Rectal Twice a day as needed Estradiol Vaginal Cream 0.01% Cream 1 Gram to the affected area Vaginal/Vulva Twice a week , Notes to Pharmacist: Please use good rx if cheaper for patient. ID: [id number], BIN: [id number], PCN: [facility], GROUP: [id number] Iron 325 (65 Fe) MG Tablet 1 tablet Orally Once a day Taking Calcium 1 tab Oral Taking Melatonin 5 MG Tablet 1 tablet in the evening Orally Once a day Taking Flexeril 10MG 1 NEEDED Taking Ibuprofen 800MG 1 ORAL as needed Taking Multivitamins 30 1 ORAL daily Taking Amitriptyline HCl 25 MG Tablet 1 tablet Orally Once a day Taking Vitamin A 12080 UNIT Capsule 1 capsule with food or milk Orally 2-3 x a week Taking Vitamin D 1000 UNIT Tablet 1 tablet Orally 2-3 x a week Taking Vitamin C 500 MG Capsule as directed Orally Taking Vitamin B Complex - Tablet as directed Orally twice a week Taking Anusol-HC 2.5 % Cream 1 application to affected area Rectal Twice a day as needed Taking Estradiol Vaginal Cream 0.01% Cream 1 Gram to the affected area Vaginal/Vulva Twice a week , Notes to Pharmacist: Please use good rx if cheaper for patient. ID: [id number], BIN: [id number], PCN: [facility], GROUP: [id number] Vaginal Cream 0.01% Cream 1 Gram to the affected area Vaginal/Vulva Twice a week Medication List reviewed and reconciled with the patientDiscontinued Estradiol Vaginal Cream 0.01% Cream 1 Gram to the affected area Vaginal/Vulva Twice a week Medication List reviewed and reconciled with the patient * Allergies:?PENICILLIN: Swell ing/Hives - AllergyFLUOXETINE: Swelling Hands/Feet - Allergyno[Allergies Verified] Objective: * Vitals:?Ht: 65 in, Wt:176lbs , BMI:29.28Index, BP:124/74mm Hg, Temp:97.2F. * Examination: ???General Exam: ?CONSTITUTIONAL:?NECK/THYROID:?RESPIRATORY:?Auscultation: clear to auscultation bilaterally, Respiratory Effort: normal.?CARDIOVASCULAR:?Auscultation: regular rate and rhythm.?BREAST, Right:?BREAST, Left:?GASTROINTESTINAL:?MUSCULOSKELETAL:?SKIN:?NEURO/PSYCH:?Genitourinary: ?EXTERNAL GENITALIA:?VAGINA:?BLADDER:?URETHRA:?CERVIX:?UTERUS:?ADNEXA:?ANUS AND PERINEUM:? Assessment: * Assessment: 1.?Encounter for gynecologic al examination (general) (routine) without abnormal findings - Z01.419???2.?Encounter for screening mammogram for malignant neoplasm of breast - Z12.31???3.?Urgency of urination - R39.15???4.?Postmenopausal atrophic vaginitis - N95.2???5.?Personal history of other diseases of the female genital tract - Z87.42???6.?Other ovarian cyst, left side - N83.292??? Plan: * Treatment: 2.?Encounter for screening m ammogram for malignant neoplasm of breast?Imaging: MM Digital Mammo Screening Notes: REGULAR MAMMOGRAMS AND SBE'S WERE RECOMMENDED.?? 3.?Urgency of urination? Notes: OFFICIAL UA AND URINE C/S WERE ORDERED. IF NEGATIVE, WILL REFER TO UROLOGIST FOR EVALUATION OF CHRONIC URGENCY. IF POSITIVE, WILL PRESECRIBE APPROPRIATE ANTIBIOTIC.?? 4.?Postmenopausal atrophic v aginitis? Start Estradiol Vaginal Cream Cream, 0.01%, 1 Gram to the affected area, Vaginal/Vulva, Twice a week, 90 Days, 42.5 Gram, Refills 4.?? Notes: CONTINUE ESTRADIOL CREAM. DETAILED INSTRUCTIONS WERE GIVEN.?? 5.?Personal history of other diseases of the female genital tract? Notes: DISCUSSED PREVIOUSLY POSITIVE HR HPV AND SUBSEQUENTLY NEGATIVE HPV TYPING. ?? 6.?Other ovarian cyst, left side? Notes: DISCUSSED PELVIC ULTRASOUND RESULTS AND NEGATIVE TUMOR MARKERS AND UNCHANGED CYST. THIS IS PROBABLY COMPLETELY BENIGN AND NOT WORRISOME. SUPSECT THIS IS JUST A CYST IC OVARY AND NOT AN OVARIAN CYST. ?? * Labs:? * ?Lab: Urinalysis (Colle tion Date & Time - 09/18/2024) ? Value Reference Range ?NITRITE Neg * ?PH 7.0 * ?PROTEIN Small * ?S.G 1.015 * ?WBC Moderate * ?GLUCOSE Neg * ?KETONES Neg * ?UROBILINOGEN Trace * ?BILIRUBIN Trace * ?BLOOD Neg * D., ELVIA 09/18/2024 09:27:06 AM EST > U/A and Urine C/S Sent ?Lab: Urinalysis, Complete-[id number]?Lab: Urine Culture, Routine-[id number] * Procedure Codes:? * Preventive Medicine:? ??YOUR PREVENTIVE WELLNESS PLAN:?Osteoporosis prevention?Calcium, D, strength training.?Breast Cancer Screening (Mammogram):?annually.?Cervical Cancer Screening (Pap Smear):?q 3 years with HPV screen.?Colorectal Cancer Screening:?q 10 years.? * Follow Up:?1 Year * Images: Billing Information: * Visit Code:? 75602 Preventive Care New Pt. Age 40-64. 23043 Preventive Care Est Pt. Age 40-64. * Procedure Codes:? * Sign off status: Completed true * Appointment Provider:?Chelsi Jeff M.D. Date:?09/18/2024 Generated for Zan mccabe/Antonia/eTransmitting on:?10/16/2024 11:42 AM EST History and Physical Notes * HPI (History of Present Illness) Category Sub-Category Detail Notes Category Not es New/Follow-up Patient Consult PAT C/O URINARY URGENCY OF 4 MONTHS DURATION. SHE HAS HAD THE URGE TO URINATE OFTEN AND URINATES ONLY A SMALL AMOUNT EACH TIME. SHE DENIES DYSURIA, FLANK PAINS OR FEVER. SHE ENTERED MENOPAUSE IN 2014 AND USES ESTRADIOL CREAM FOR ATROPHIC VAGINITIS. SHE DENIES DYSPAREUNIA. SHE HAS BEEN 27 YEARS. HER PAP TEST IN 2017 WAS NEGATIVE BUT HPV POSITIVE. REPEAT SUBSEQUENT PAP TESTS HAVE BEEN NEGATIVE AND HPV NEGATIVE INCLUDING HER LAST ONE IN 2022. HER LAST MAMMOGRAM DONE IN AUG 2023 SHOWED BREASTS ARE NOT DENSE AND WAS NORMAL. SHE HAS ANOTHER APPT IN SEP 2024. SHE WAS FOUND TO HAVE A CYSTIC LEFT OVARRY MEASURING 3.5 CM IN 2020. TUMOR MARKERS WERE NEGATIVE AND REPEAT PELVIC ULTRASOUND DONE IN 2023 SHOWED NO CHANGE. SHE IS ASYMPTOMATIC. SHE HAD A COLONOSCOPY DONE IN 2022. [employer] X 3. Annual General Health Maintenance: Current breast complaints:: no breast pain, mass, discharge, or skin changes Urinary problems:: patient r eports no urinary health problems or bowel health problems Calcium intake:: takes adequ ate calcium via diet and supplementation Significant INTENSIVIST problems:: n o significant refrigeration tech symptoms or problems Examination Category Sub-Category Detail Notes Category Not es General Exam CONSTITUTIONAL: General Appearan ce:: alert, in no acute distress, normal, well nourished NECK/THYROID: Thyroid:: normal size and shape Inspection/Palpation:: normal RESPIRATORY: Auscultation: clear to auscultation bilaterally, Respiratory Effort: normal CARDIOVASCULAR: Auscultation: regula r rate and rhythm GASTROINTESTINAL: Hernias:: no hernias present, no inguinal adenopathy Liver and Spleen:: normal Abdomen:: no masses, nontender, nondiste nded MUSCULOSKELETAL: Inspection/Palpation:: no clubb ing, cyanosis, or edema SKIN: Skin:: normal NEURO/PSYCH: Mood/Affect:: normal Orientation:: time , place, person BREAST, Right: Inspection/Palpation :: no discharge, no masses present, no nipple retraction, no skin changes, no skin dimpling, no tenderness, no lymphadenopathy, no axillary mass, no axillary tenderness BREAST, Left: Inspection/Palpation :: no discharge, no masses present, no nipple retraction, no skin changes, no skin dimpling, no tenderness, no lymphadenopathy, no axillary mass, no axillary tenderness Genitourinary EXTERNAL GENITALIA: External Genitalia:: nor mal, no lesions VAGINA: Vagina:: normal appearance, no a bnormal discharge, no lesions BLADDER: Bladder:: no mass, nontender URETHRA: Urethra:: no erythema or lesions present CERVIX: Cervix:: no lesions, nontender UTERUS: Uterus:: nontender, normal conto ur, normal mobility, normal size ADNEXA: Adnexa:: no masses, no tendernes s ANUS AND PERINEUM: Anus/Perineum:: visually norm al
--- OUTSIDE RECORDS SUMMARY | 2024-10-16 11:42 | XMS_ITS | Patient Health Record ---
Author Organization [facility] Address [address] [place] [address] Care Team Providers Care Glue Plant Operator Name Role Phone Starr Michaud Primary Care Provider Reta Alvarado Unavailable [phone] Allergies Allergen (clinical drug ingredient) Drug/Non Drug Allergy documented on EMR Reaction Allergy Type Onset Date Status fluoxetine Fluoxetine swelling Drug Allergy Activ e Penicillin swelling/rash Drug Allergy Ac tive Reason For Referral No Information Medications Medication SIG (Take, Route, Fr equency, Duration) Notes Start Date End Date Status Amitriptyline HCl 25 MG 1 tablet at bedt johanne Orally Once a day Active Social History Tobacco Use: Social History Observation Description Date Details (start date - stop date) Never Smoker NA - NA Tobacco use other than smoking: Question Answer Notes Are you an other tobacco user? No Tobacco Control (Standard) Question Answer Notes Tobacco use: Nonsmoker AUDIT-C (Standard) Question Answer Notes Did you have a drink containing alcohol in the p ast year? No Points 0 Interpretation Negative Problems Problem Type SNOMED Code ICD Code Onset Dates Problem Status W/U Status Risk Notes Problem [id number] Fibromyalgia (M79.7) Active confirmed Problem Acquired hallux valgus (79859505) Hallux valgus (acquired), left foot (M20.12) Active confirmed Problem Acquired hallux valgus (01607604) Hallux valgus (acquired), right foot (M20.11) Active confirmed Vital Signs Blood pressure diastolic 80 mm Hg 09/09/2024 Height 5ft4in in 09/09/2024 Blood pressure systolic 120 mm Hg 09/09/2024 Weight 180 lbs 09/09/2024 BMI 30.89 kg/m2 09/09/2024 Encounters Encounter Location Date Provider Diagnosis [facility] [place] [address] [place] [address] 09/09/2024 Reta Howard Hallux valgus (acquired), left foot M20.12 ; Hallux valgus (acquired), right foot M20.11 ; Pain in right foot M79.671 ; Pain in right ankle and joints of right foot M25.571 ; Bursitis of right foot M77.51 and Fibromyalgia M79.7 [facility] [address] [place] [address] 06/19/2024 Reta Howard [facility] [address] 09/09/2024 Reta Howard Assessments Encounter Date Diagnosis (ICD Code) Assessment Notes Treatment Notes Treatment Clinical Notes Section Notes 09/09/2024 Hallux valgus (acquired), left foot (ICD-10 - M20.12) 09/09/2024 Hallux valgus (acquired), right foot (ICD-10 - M20.11) 09/09/2024 Pain in right foot (ICD-10 - M79.671) 09/09/2024 Pain in right ankle and joints of right foot (ICD-10 - M25.571) 09/09/2024 Bursitis of right foot (ICD-10 - M77.51) 09/09/2024 Fibromyalgia (ICD-10 - M79.7) Plan Of Treatment Pending Test Test Name Order Date X ray : Foot, left 3V 09/09/2024 X ray : Foot, right 3V 09/09/2024 Next Appt Details Provider Name:Reta craft, 11/20/2024 12:00:00 PM, [address] [place] [address], [phone], Insurance Providers Payer Name Payer Address Payer Phone Subscriber Number Group Number Insured Name Patient Relationship to Insured Coverage Start Date Coverage End Date [facility] [address] [place] [address] [id number] Tyesha Ahuja Self - patient is the insured 3 Medical (General) History Medical History History ICD Code Anemia Anxiety Arthritis Back,Hip,and Knee pain Fibromyalgia Headaches/Migraines Menieres disease Chicken pox Lupus/borderline
--- OUTSIDE RECORDS SUMMARY | 2024-10-16 11:43 | XMS_ITS ---
Author Organization [facility] Address [address] [place] [address] Care Team Providers Care Chemical Plant Technical Director Name Role Phone Starr Michaud Primary Care Provider Reta Alvarado [phone] REASON FOR VISIT SOCIAL MEDIA DEVELOPER Encounters Encounter Location Date Provider Diagnosis [facility] [address] [place] [address] 06/19/2024 Reta Howard Plan Of Treatment Next Appt Details Provider Name:Reta craft, 11/20/2024 12:00:00 PM, [address] [place], [address], Progress Notes * Tyesha WRENDOB:1970 (54 yo M)Acc No.[id number]:06/19/2024 Patient:?Tyesha Wren :1970???Age:54 Y???Sex:Male Address:[address] [place] [address] * true * Date:? Generated for Printi estelle/Antonia/eTransmitting on:?10/16/2024 11:43 AM EST
--- OUTSIDE RECORDS SUMMARY | 2024-10-16 11:43 | XMS_ITS ---
Author Organization [facility] Address [address] [place] [address] Care Team Providers Care Combat Control Name Role Phone JOANNA ROSADO M.D. Primary Care Provider Chelsi Spann [phone] REASON FOR VISIT LAB SLIP FOR TUMOR MARKERS Encounters Encounter Location Date Provider Diagnosis [facility] [address] [place] [address] 09/25/2023 Chelsi Jeff Unspecified ovarian cyst, left side N83.202 Assessments Encounter Date Diagnosis (ICD Code) Assessment Notes Treatment Notes Treatment Clinical Notes Section Notes 09/25/2023 Unspecified ovarian cyst, left side (ICD-10 - N83.202) Plan Of Treatment Pending Test Test Name Order Date CANC ANT-125 09/25/2023 CEA MONOCLONAL 09/25/2023 INHIBIN B 09/25/2023 LDH 09/25/2023 Next Appt Details Provider Name:Chelsi payne, 09/24/2025 08:50:00 AM[facility] [address], [place], [address], Progress Notes * SALMA WRENDOB:1970 (53 yo F)Acc No.[id number]:09/25/2023 Patient:?SALMA WREN :1970???Age:53 Y???Sex:Female Address:[address] [place] [address], [address] Subjective: * Chief Complaints: * ???LAB SLIP FOR TUMOR MARKER S * Medical History:? * Surgical History:? * Hospitalization/Major Diagno stic Procedure:? * Medications:? Objective: Assessment: * Assessment: 1.?Unspecified ovarian cyst, left side - N83? Plan: * Treatment: * Procedure Codes:? * true * Date:? Generated for Zan mccabe/Antonia/Roshanitting on:?10/16/2024 11:42 AM EST
--- OUTSIDE RECORDS SUMMARY | 2024-10-16 11:43 | XMS_ITS ---
Author Organization [facility] Address [address] [facility] [place] [address] Care Team Providers Care Data Warehouse Analyst Name Role Phone Starr Michaud Primary Care Provider Reta Alvarado Unavailable [phone] Allergies Allergen (clinical drug ingredient) Drug/Non Drug Allergy documented on EMR Reaction Allergy Type Onset Date Status fluoxetine Fluoxetine swelling Drug Allergy Activ e Penicillin swelling/rash Drug Allergy Ac tive REASON FOR VISIT Foot pain Medications Medication SIG (Take, Route, Fr equency, [...] Problem Status W/U Status Risk Notes Problem Acquired hallux valgus (93075940) Hallux valgus (acquired), left foot (M20.12) Active confirmed Problem Acquired hallux valgus (80104359) Hallux valgus (acquired), right foot (M20.11) Active confirmed Problem [id number] Fibromyalgia (M79.7) Active confirmed Vital Signs Height 5ft4in in 09/09/2024 Weight 180 lbs 09/09/2024 BMI 30.89 kg/m2 09/09/2024 Blood pressure systolic 120 mm Hg 09/09/19 25 Blood pressure diastolic 80 mm Hg 025 Encounters Encounter Location Date Provider Diagnosis [facility] [address] [place] [address] 09/09/2024 Reta Howard Hallux valgus (acquired), left foot M20.12 ; Hallux valgus (acquired), right foot M20.11 ; Pain in right foot M79.671 ; Pain in right ankle and joints of right foot M25.571 ; Bursitis of right foot M77.51 and Fibromyalgia M79.7 Assessments Encounter Date Diagnosis (ICD Code) Assessment [...] Foot, right 3V 09/09/2024 Next Appt Details Follow Up: 2 Months, Reason: Provider Name:Reta craft, 11/20/2024 12:00:00 PM, [address] [place] [address], [address], Progress Notes * Tyesha WRENDOB:1970 (54 yo F)Acc No.[id number]:09/09/2024 Progress Notes Patient:?Tyesha WREN Provider:?Reta Howard DPM :1970???Age:54 Y???Sex:Female D ate:09/09/2024 Address:[address] [place], [place] [id number] Pcp:Starr Michaud Subjective: * Chief Complaints: * ???Foot pain * HPI: ???Foot Pain:?Nature:?aching, tenderness, throbbing.?Location:?Inside, Great toe joint, Right > Left.?Duration:?several years.?Onset:?gradual, genetic.?Course:?worse.?Aggravated:?any pressure, standing, walking, shoes.?Treatments:?rest/alter normal daily activity, change in shoes, padding, bracing, straps, wraps.? * ROS:?General/Constitutional:?Nausea?denies.?Vomiting?denies.?Hunger Thirst?denies.?Loss appetite?denies.?Chills?denies.?Fatigue?denies.?Fever?denies.?Night Sweats?denies.?Unexplained weight loss?denies.?Unexplained weight gain?denies.?HEENTM:?Dentures?denies.?Dizziness?denies.?Glasses/contacts?denies.?Retinopathy?de nies.?Blurred/double vision?denies.?TMJ?denies.?Discharge/drainage?denies.?Implants?denies.?Sore throat?denies.?Dental implants?denies.?Hard of hearing ?denies.?Difficulty chewing/swallowing/speaking?denies.?Nose bleeds?denies.?Sore mouth?denies.?Respiratory:?On Oxygen?denies.?Pneumonia/pleurisy?denies.?Bronchitis?denies.?Emphysema?denies.?C oughing?denies.?Cough blood?denies.?Shortness of breath?denies.?Wheezing?denies.?Cardiovascular:?Pacemaker?denies.?MVP?denies.?WPW?denies.?CHF?denies.?Heart attack?denies.?Septal defect?denies.?Rapid beat?denies.?Chest pain ?denies.?Atrial Fib.?denies.?Murmur/Palpitations?denies.?Gastrointestinal:?Hemorrhoids?denies.?Stomach/Abdominal pain?denies.?Dark blood stool?denies.?Irritable bowel ?denies.?Constipation?denies.?Diarrhea?denies.?Hematology:?Swelling?denies.?Clots?denies.?Varicose Veins?denies.?Bruising?denies.?Bleeding problem?denies.?Genitourinary:?Blood urine?denies.?Frequent/Painfu/urination/bladder control?denies.?Kidney stones?denies.?Infection (UTI)?denies.?Nephropathy?denies.?sex trans dis (STD)?denies.?Prostate?denies.?Musculoskeletal:?Hammertoes?denies.?Bunions?denies.?Back Pain?denies.?Muscle Cramps/ Resting?denies.?Muscle cramps / walking?denies.?Generalized aches and pains?denies.?Weakness?denies.?Integ.:?Gilman?denies.?Scars?denies.?Corns/calluses?denies.?Ingrown nails?denies.?Painful nails?denies.?Open Sores?denies.?Rashes?denies.?Neurologic:?Difficulty sleeping?denies.?Brain disorder?denies.?Numbness?denies.?Balance trouble?denies.?Confusion?denies.?Fainting/blackouts?denies.?Tingling?denies.?Tr emors?denies.? * Medical History:? * Surgical History:?Denies Pas t Surgical History * Hospitalization/Major Diagno stic Procedure:?Denies Past Hospitalization * Family History:?Mother: aliv e, high blood pressure, diagnosed with Family history of arthritis.?Father: alive, diagnosed with Diabetic - NIDDM.? * Social History:?Tobacco Use:?Tobacco use other than smoking?Are you an other tobacco user??No ?Tobacco Control (Standard)?Tobacco use:?Nonsmoker ???Drugs/Alcohol:?Drugs?Have you used drugs other than those for medical reasons in the past 12 months??No ???Miscellaneous:?Caffeine: yes, 3 cups. ?Children: yes, 3. ?Exercise: no. ?Marital status: single. ?Occupation: Intake [employer]. ???Drug/Alcohol:?AUDIT-C (Standard)?Did you have a drink containing alcohol in the past year??No ?Points?0 ?Interpretation?Negative * Medications:?TakingAmitripty line HCl 25 MG Tablet 1 tablet at bedtime Orally Once a day Medication List reviewed and reconciled with the patientTaking Amitriptyline HCl 25 MG Tablet 1 tablet at bedtime Orally Once a day Medication List reviewed and reconciled with the patient * Allergies:?Penicillin: swell ing/rashFluoxetine: swellingyes[Allergies Verified] Objective: * Vitals:?Ht: 5ft4in, Wt:180, BMI:30.89, Shoe size: 8.5-9, BP:120/80mm Hg, Ht-cm: 162.56 cm, Wt-k.65 kg. * Examination: ???General Examination: ?GENERAL APPEARANCE:?Reveals a pleasant, alert, well-nourished, well- developed, well hydrated individual, who demonstrates proper attention to hygiene/body habitus, and is in no acute distress, Pt serves as own?historian for office visit today.?ORIENTED:?person, place, and time.?Neurological: ?SENSORY:?Neurological exam reveals intact sensorium, pain sensation normal, vibration sensation intact, pinprick sensation is normal in the lower extremities, Pt denies, anesthesia, burning, paresthesia, tingling, B/L.?TINEL'S COMPRESSION:? Negative, Saphenous nerve distribution, B/L.?DEEP TENDON REFLEXES:?Achilles, 2/4, B/L.?Vascular: ?DP PULSES (B):?3/4, B/L.?PT PULSES (B):?3/4, B/L.?CAPILLARY FILL TIME:?immediate, all digits, B/L.?TROPHIC CONDITION-TEXTURE/ELASTICITY/TURGOR/HAIR GROWTH (B):?normal, B/L.?TEMPERTURE GRADIENT (C):?warm to cool, proximal to distal, B/L.?PIGMENTATION:?normal, B/L.?EDEMA (C):?absent, B/L.?Dermatologic: ?SKIN FINDINGS:?Skin exam reveals normal texture, elasticity, and turgor. There are no masses. The interspaces are clear.?Orthopedic: ?MUSCLE STRENGTH:?5/5 all groups in a symmetrical fashion , B/L.?FOOT MORPHOLOGY:?B/L, Pes Planus structure.?BUNION:? Medially prominent 1st MPJ, (+) Pain on palpation, inflammation present medially, Lateral tracking 1st MPJ incompletely reducible R>>L,ROM 1st MPJ full,and without pain, or crepitus.?X-Rays - IMAGING REPORT: ?Clinical Indication(s):? Evaluate Biomechanical Deformity.?Views:?3 views of Foot, AP, LAT, LO, B/L??Taken by trained?Podiatric Team Assembler (?SF ).?Findings:?normal bone and soft tissue density consistent for patients age and sex.?HAV:?increased First Intermetatarsal angle and Hallux Abductus angle consistent with Bunion deformity noted, hypertrophy of the dorsal and medial 1st MTH without subchondral cyst R>L , tibial sesamoid position, 4 Right.?Fracture:?Negative fractures identified.? Assessment: * Assessment: 1.?Hallux valgus (acquired), left foot - M20.12???2.?Hallux valgus (acquired), right foot - M20.11 (Primary)???3.?Pain in right foot - M79.671???4.?Pain in right ankle and joints of right foot - M25.571???5.?Bursitis of right foot - M77.51???6.?Fibromyalgia - M79.7??? Plan: * Treatment: * Imaging:? * ?Imaging: X ray : Foot, left 3V * Procedure Codes:?56408 X-RAY EXAM OF LEFT FOOT 3V, Modifiers: 26 , [id number] X- RAY EXAM OF RIGHT FOOT 3V, Modifiers: 26 , RT * Preventive Medicine:? ??Counseling:?Discussion:?-04: Office or other outpatient visit for the evaluation and management of a new patient, which required a medically appropriate history and/or examination and MODERATE level of DECISION MAKING for: 1 OR MORE CHRONIC PROBLEM(S) THATS WORSENING, 2 STABLE CHRONIC PROBLEMS, A NEWLY DIAGNOSED PROBLEM WITH UNCERTAIN PROGNOSIS, AN ACUTE COMPLICATED INJURY WITH MULTIPLE TREATMENT OPTIONS, OR AN ACUTE PROBLEM WITH ACCOMPANYING SYSTEMIC SYMPTOMS, THAT POSE(S) A MODERATE RISK OF MORBIDITY. THIS CONDITION MAY ALSO INCLUDE RX DRUG MANAGEMENT, OR A DECISON FOR MINOR SURGERY. The visit on the day of the encounter encompassed interpreting the data and educating the patient as to the nature of their condition, treatment options available according to their individual PMH, meds, allergies, and overall health/living conditions, as well as any potential risks or complications that may occur from a failure to adhere to, and participate in, the recommended course of therapy. The discussion included a complete verbal, and/or written explanation of the examination results, any x-rays taken, the proposed diagnosis, and outline of the treatment plan. A schedule for future care needs was also explained. The patient verbalized an understanding of the instructions at this time and agreed to be an active participant in their treatment. If the patient should think of any questions or concerns after the visit, I have encouraged the patient to call the office.?Digital Treatment:?HV - I explained to the patient the risks/benefits of all the different treatment options for their pain including: No treatment at all, Rest, Ice, New/supportive/wider/deeper Shoe gear, Digital Padding/Strapping/Taping/Bracing/Gel protective sleeves, Foot/Ankle AFO Bracing, Stretching exercises, Deep Tissue Massage, Arch support/shoe inserts with splay metatarsal padding, and Custom orthoses. I insisted that any digital devices be removed daily and not worn overnight for safety. The patient is to carefully examine the toes daily for any skin irritation while using any splinting or padding device. The advantages and disadvantages of each option were discussed and the patients questions re: shoe gear, padding, custom vs prefabricated inserts, activity level, and consistency in home treatment regimens for optimal success were answered to their verbally confirmed satisfaction.?Discussion for Bunion sx:?Several different types of Bunion surgeries were discussed with the patient, including, but not limited to: Modified Benito bone removal and soft tissue release/realignment, Surjit osteotomy with soft tissue release/realignment and internal fixation, Shaft v Base wedge osteotomies with internal fixation, and Lapidus joint fusion procedures with internal fixation. We discussed the risks of having surgery (described below) vs not having surgery (persistent pain, deformity, risk for skin ulceration/infection, loss of toe) as well as the potential surgical complications including, but not limited to: pain, swelling, bleeding, scarring, numbness, infection, delayed/non healing, floppy/unstable/shorthened toe, recurrence, failure of the procedure, overcorrection leading to plantarflexed/downward/upward positioned toe, recurrence, need for further surgery, as well as the possibility for loss of the toe itself. We discussed the use of IV/Local regional anesthesia, and the usual post-op course for healing. No guarentees were given. The patient verbally indicated a full understanding of the above conversation, and any other of their questions were answered to their satisfaction.?Orthotics:?I explained to the patient the benefits of OT use. I explained that orthoses are medically necessary to decrease the foot pain through proper mechanical control, support of their foot, cushion the forefoot by supplementing the soft tissue, possibly delay of the progression of the bunion deformity, possibly prevent surgery.?P.R.I.C.E.:?The patient was counseled on the use of P.R.I.C.E. and NSAIDS (if well tolerated) to aid in the recovery from their painful condition , Recommended Topical analgesics including Biofreeze/Aspercream/Voltaren gel.?Shoe Gear Counseling:?The patient and I reviewed the types of shoes they should be wearing. My recommendation included obtaining a well-fitted shoe with a good supportive, non-foldable nor twistable sole, plenty of toe/room for the forefoot, and proper arch support. Based on todays examination, I recommended the patient look for new shoes, by having their feet professionally measured. We discussed that generally the best time of the day for a shoe fitting is the afternoon. Different shoes types and brands to best match the patients occupation and vocation were discussed. Specific brand selection will be up to the patient, their individual foot condition/deformities, and fit. The patient and I reviewed the standard new shoe break in period by wearing them for a few hours a day while checking for redness or sores as wear time is increased. The patient verbally confirmed to understanding the information discussed.?X-rays:?Discussed and reviewed the X-rays with the patient. We discussed how the findings relate to the patients symptoms/complaints. Answered any and all questions..? ??Screening/Special Tests:?Fall Risk?Screening:?No falls in the past year ?FALLS: Screening for Future Fall Risk?Have you had any falls with injury in the past year??No * Follow Up:?2 Months * Images: * Sign off status: Completed true * Provider:?JULIO CÉSAR ArmstrongM Date:? Generated for Zan mccabe/Antonia/Shante on:?10/16/2024 11:43 AM EST History and Physical Notes * HPI (History of Present Illness) Category Sub-Category Detail Notes Category Not es Foot Pain Nature: aching, tenderness, throbbin g Location: Inside, Great toe chris int, Right > Left Duration: several years Onset: gradual, genetic Course: worse Aggravated: any pressure, standi ng, walking, shoes Treatments: rest/alter normal da shania activity, change in shoes, padding, bracing, straps, wraps Examination Category Sub-Category Detail Notes Category Not es Neurological SENSORY: Neurological exa m reveals intact sensorium, pain sensation normal, vibration sensation intact, pinprick sensation is normal in the lower extremities, Pt denies, anesthesia, burning, paresthesia, tingling, B/L TINEL'S COMPRESSION: Negative, Saphenous nerve distribution, B/L DEEP TENDON REFLEXES: Achilles, 2/4, B/L Dermatologic SKIN FINDINGS: Skin exam reveal s normal texture, elasticity, and turgor. There are no masses. The interspaces are clear Orthopedic FOOT MORPHOLOGY: B/L, Pes Planus structur e BUNION: Medially prominent 1 st MPJ, (+) Pain on palpation, inflammation present medially, Lateral tracking 1st MPJ incompletely reducible R>>L,ROM 1st MPJ full,and without pain, or crepitus MUSCLE STRENGTH: 5/5 all groups in a symmetrical fashion , B/L General Examination GENERAL APPEARANCE: Reveals a pleasant, alert, well- nourished, well-developed, well hydrated individual, who demonstrates proper attention to hygiene/body habitus, and is in no acute distress, Pt serves as own historian for office visit today ORIENTED: person, place, and t johanne Vascular DP PULSES (B): 3/4, B/L PT PULSES (B): 3/4, B/L CAPILLARY FILL TIME: immediate, all digi ts, B/L TEMPERTURE GRADIENT (C): warm to cool, p roximal to distal, B/L TROPHIC CONDITION-TEXTURE/ELASTICITY/TURGOR/HAIR GROWTH (B): normal, B/L EDEMA (C): absent, B/L PIGMENTATION: normal, B/L X-Rays - IMAGING REPORT Findings: normal b one and soft tissue density consistent for patients age and sex Fracture: Negative fractures i dentified HAV: increased First Inte rmetatarsal angle and Hallux Abductus angle consistent with Bunion deformity noted, hypertrophy of the dorsal and medial 1st MTH without subchondral cyst R>L , tibial sesamoid position, 4 Right Views: 3 views of Foot, AP, LAT, LO, B/L Taken by trained Podiatric Team Assembler ( SF ) Clinical Indication(s): Evaluate Biomech anical Deformity
--- OUTSIDE RECORDS SUMMARY | 2024-10-16 11:43 | XMS_ITS ---
Author Organization [facility] Address [address] [place] [address] Care Team Providers Care Medical Doctor Md/Medical Director Name Role Phone JOANNA ROSADO M.D. Primary Care Provider Chelsi Spann Unavailable [phone] MARY JANE JAVED Unavailable [phone] REASON FOR VISIT New Refill Request Medications Medication SIG (Take, Route, Frequency, Duration) Notes Start Date End Date Status Estradiol Vaginal Cream 0.01% 1 Gram to the affected area Vaginal/Vulva Twice a week for 90 days Please use good rx if cheaper for patient. ID: [id number], BIN: [id number], PCN: CRISTY, GROUP: [id number] 09/13/2023 Active Encounters Encounter Location Date Provider Diagnosis [facility] [address] [address] 09/07/2024 MARY JANE TELLO Postmenopausal atrop hic vaginitis N95.2 Assessments Encounter Date Diagnosis (ICD Code) Assessment Notes Treatment Notes Treatment Clinical Notes Section Notes 09/07/2024 Postmenopausal atrophic vaginitis (ICD-10 - N95.2) Plan Of Treatment Medication Medication Name Sig Start Date Stop Date Notes Estradiol Vaginal Cream 0.01% 1 Gram to the affected area Vaginal/Vulva Twice a week for 90 days 09/13/2023 Please use good rx if cheaper for patient. ID: [id number], BIN: [id number], PCN: CRISTY, GROUP: [id number] Next Appt Details Provider Name:Chelsi payne, 09/24/2025 08:50:00 AM, [address] [place] [address], [place], [address], Progress Notes * SIENA SALMADOB:1970 (54 yo F)Acc No.[id number]:09/07/2024 Patient:?SALMA WREN :1970???Age:54 Y???Sex:Female Address:[address] [place] [address], [address] * Refills? Refill Estradiol Vaginal Cream Cream, 0.01%, Vaginal/Vulva, 42.5 Gram, 1 Gram to the affected area, Twice a week, 90 days, Refills=0 * true * Date:? Generated for Zan mccabe/Antonia/Rosaurasmitting on:?10/16/2024 11:43 AM EST
== END 2024-10-16 10:43 | disposition home or self-care (01) ==
LOC: HO.MAMMO 10:42
PROVIDERS: Visit Provider Internal Medicine
DX: Z12.31 Encounter for screening mammogram for malignant neoplasm of breast (principal)
CPT/HCPCS: 77063; 77067

== ENCOUNTER → 2024-10-16 10:45 | Outpatient (BNV) | payer OTHER, SELFPAY | PROVIDERS: Visit Provider Internal Medicine | DX: Z12.31 Encounter for screening mammogram for malignant neoplasm of breast (principal) | CPT/HCPCS: 77063; 77067 ==

== ENCOUNTER 2024-11-09 16:28 | Outpatient (AMB) | payer OTHER, SELFPAY ==
[2024-11-09 17:10] VITALS: BP 116/74; PULSE 97; TEMP 36.2; O2SAT 98; BMI 28.8
--- NOTE | 2024-11-09 17:10 | A.OFFPC_ITS ---
Vital Signs 11/09/24 17:10 Height 5 ft 5 in Weight 173 lb 2 oz BMI 28.8 BP 116/74 Blood Pressure Location Lt brachial Position Sitting Pulse 97 Pulse Source Pulse Oximeter Temp 97.1 F Temp Source Temporal Artery Scan Pulse Oximetry (%) 98 Oxygen Delivery Method Room Air Intake Visit Reasons: annual exam Intake Note: Patient is here today for a physical. Surgical Corsetier Required: No Accompanied by: Self / Same As Patient Allergies Penicillins Allergy (Intermediate, Verified 11/09/24 17:14) Rash, Swelling fluoxetine Adverse Reaction (Intermediate, Verified 11/09/24 17:14) Swelling Medication List - Last Reconciled 11/09/24 by Starr Michaud MD amitriptyline 25 mg PO BEDTIME cyclobenzaprine 5 - 10 mg (1 - 2 x 5 mg) PO BEDTIME PRN estradiol 0.01%(0.1mg/gram) 1 g vaginal 2XW ibuprofen 800 mg PO TID PRN 90 days magnesium 750 mg PO .QOD melatonin 10 mg PO BEDTIME PRN multivitamin 1 tab PO DAILY Tobacco use date assessed: 11/09/24 Dental Screening Dental Screen Date: 11/09/24 Did you have a dental visit in the last 12 months?: Yes Did you have a dental problem in the last 6 months where you did not have access to dental care?: No Was dental information given to patient?: Patient has dentist HPI annual exam HPI Details vertigo PFSH Medical History (Updated 11/09/24 @ 17:29 by Starr Michaud MD) Vertigo Hx of vertigo Fibromyalgia Alopecia Hearing deficit Encounter for screening colonoscopy Colon cancer screening Laryngitis Cough Migraine Meniere disease Raynauds phenomenon Hypercholesterolemia Chronic low back pain Anemia Surgical History Hx of tubal ligation Family History Father Diabetes Hypertension Mother Hypertension Maternal Aunt Myocardial infarction Maternal Uncle Myocardial infarction Social History Household Members: Significant Other and Children Housing: House Are you a primary palliative care physician to a significant other at home: Yes (mother) Do you presently have visiting nurse or other home services: No Alcohol intake: never Patient Tobacco Use Status: Never used Tobacco e-Cigarette/Vaping Use: Never Used Second Hand Smoke Exposure: No service: No Current occupational status: employed Cognitive needs: No Hearing needs: No Vision needs: No Questionnaire PHQ-9 Over the last 2 weeks, how often have you been bothered by any of the following problems? 1. Little interest or pleasure in doing things: not at all 2. Feeling down, depressed, or hopeless: not at all 3. Trouble falling or staying asleep, or sleeping too much: nearly every day 4. Feeling tired or having little energy: several days 5. Poor appetite or overeating: several days 6. Feeling bad about yourself - or that you are a failure or have let yourself or your family down: not at all 7. Trouble concentrating on things, such as reading the newspaper or watching television: several days 8. Moving or speaking so slowly that other people could have noticed. Or the opposite - being so fidgety or restless that you have been moving around a lot more than usual: not at all 9. Thoughts that you would be better off or of hurting yourself in some way: not at all Total score: 6 37479 - PHQ-9 Billing: Yes Source: Developed by Drs. Blayne Esqueda, Bernice Heck, Chivo Pete and colleagues, with an educational lynette from [employer]. Thrive Questionnaire Date Thrive assessed: 11/09/24 I am a: Parent/Caregiver What is your living situation today?: I have a steady place to live Within the past 12 months, did the food you bought not last and you didn't have the money to get more?: Never true Within the past 12 months, did you worry whether your food would run out before you got money to buy more?: Never true Do you have trouble paying for medicines?: Yes Do you have trouble getting transportation to medical appointments?: No Do you have trouble paying your heating and electricity bill?: No Do you have trouble taking care of your child, family member or friend?: No Do you have trouble with day-to-day activities such as bathing, preparing meals, shopping, managing finances, etc.?: No Are you currently unemployed and looking for a job?: No Are you interested in more education?: No Please select the resources that you would like help with: None Currently or been in a relationship where the following occur: No concerns reported THRIVE Score: 0 AUDIT C Alcohol Use Questionnaire (AUDIT-C) 1. How often do you have a drink containing alcohol?: Never 3. How often do you have six or more drinks on one occasion?: Never Total Score: 0 VALENTÍN-7 AMB Questionnaire VALENTÍN-7 Date VALENTÍN - 7 assessed: 11/09/24 Feeling nervous, anxious, or on edge: 0 = Not at all Not being able to stop or control worryin = Not at all Worrying too much about different things: 0 = Not at all Trouble relaxin = Several days Being so restless that it is hard to sit still: 0 = Not at all Becoming easily annoyed or irritable: 0 = Not at all Feeling afraid as if something awful might happen: 0 = Not at all Total VALENTÍN-7 score (0-4 normal; 5-9 mild; 10-14 moderate; 15-21 severe): 1 Source: Developed by Drs. Blayne Esqueda, Bernice Heck, Chivo Pete and colleagues, with an educational lynette from [employer]. VALENTÍN-7 Assessment Billing VALENTÍN-7 Assessment Tool: VALENTÍN-7 Assessment 85334 Review of Systems Const Denies poor appetite and Denies weakness Eyes Denies no additional complaints ENT Reports Normal hearing present, Denies dizziness, Denies nasal congestion, Denies tinnitus and Denies sore throat Card Denies chest pain, Denies syncope, Denies rapid heart rate and Denies dyspnea Resp Denies cough and Denies dyspnea GI Denies change in stool character, Reports constipation, Denies diarrhea, Denies nausea and Denies vomiting Denies urinary frequency, Denies difficulty voiding and Denies dysuria Neuro Reports Normal hearing present, Denies confusion, Denies dizziness, Denies syncope and Denies weakness Psych Denies confusion Physical exam (Primary Care) Vital Signs: Last Vital Signs Temp 97.1 F 11/09/24 17:10 Pulse 97 11/09/24 17:10 BP 116/74 11/09/24 17:10 Pulse Ox 98 11/09/24 17:10 Oxygen Delivery Method Room Air 11/09/24 17:10 BMI result Body Mass Index 28.8 Tobacco/Smoking Status: Tobacco use Status Tobacco use date assessed 11/09/24 11/09/24 17:17 Patient Tobacco Use Status Never used Tobacco 11/09/24 17:17 e-Cigarette/Vaping Use Never Used 11/09/24 17:17 PHQ-9: PHQ-9 Score PHQ-9: Total score 6 11/09/24 17:26 Thrive Assessment: Date of Thrive Assessment Date Thrive assessed 11/09/24 11/09/24 17:17 Currently or been in a relationship where the following occur: No concerns reported Const General: No confusion Orientation/consciousness: No confusion HENMT Head: Yes normocephalic Ears: external ears normal and TM's normal bilaterally Face and sinus: Yes normal facial exam Mouth: moist mucous membranes Throat: Yes tonsils normal Eyes Conjunctivae: conjunctivae normal Pupils: Equal, round and reactive pupils present and Pupil accommodation reflex normal Direct Ophthalmoscopy: normal light reflex Neck Neck: No lymphadenopathy Thyroid: Thyroid normal Chest Chest palpation & inspection: normal inspection of the chest Resp Effort & Inspection: normal respiratory effort and no audible wheezes Auscultation: clear to auscultation bilaterally, no crackles, no wheezes and lung sounds not diminished Cardio Rate: regular rate Rhythm: regular rhythm Peripheral pulses: radial pulses present and dorsalis pedis present GI Palpation (GI): no masses Auscultation: normal bowel sounds and normoactive bowel sounds Rectal Exam - Female: deferred Skin General skin exam: no rashes or lesions noted Rashes: no rashes Neuro General: No confusion Cranial nerves: Yes Equal, round and reactive pupils present and Yes Normal hearing present Cognition (Neuro): normal cognition Gait exam (Neuro): Normal gait present Motor exam (neuro): 5/5 motor strength present throughout Deep tendon reflexes (DTR's): Right brachioradialis reflex intensity grade: 2+, Left brachioradialis reflex intensity grade: 2+, Right patellar reflex intensity grade: 2+ and Left patellar reflex intensity grade: 2+ Extrem General: No edema Coding Level of Care Code Est Pt Prev Care 40-64y(48935) Diagnoses Annual physical exam Z00.00 Overweight (BMI 25.0-29.9) E66.3 Hypercholesterolemia E78.00 Anemia D64.9 Generalized anxiety disorder F41.1 Central positional vertigo H81.4 Additional Codes VALENTÍN-7 Assessment Billing - VALENTÍN-7 Assessment Tool: VALENTÍN-7 Assessment 27623 ([id number]) PHQ-9 - 69979 - PHQ-9 Billing: Yes ([id number]) Assessment & Plan Assessment & Plan (1) Annual physical exam: Code(s): Z00.00 - Encounter for general adult medical examination without abnormal findings Category: Medical Plan: Patient is advised to eat healthy, keep well hydrated, keep active and have adequate sleep. (2) Overweight (BMI 25.0-29.9): Onset Date: ~03/04/23 Code(s): E66.3 - Overweight Category: Medical Plan: Diet and exercise (3) Hypercholesterolemia: Code(s): E78.00 - Pure hypercholesterolemia, unspecified Category: Medical Plan: Avoid fried foods, chicken skin, eggs, butter margarine, pastries and meat. Be it pork or beef they have a lot of cholesterol (4) Anemia: Code(s): D64.9 - Anemia, unspecified Category: Medical Plan: Chronic and stable (5) Generalized anxiety disorder: Code(s): F41.1 - Generalized anxiety disorder Category: Medical Plan: Continue with present medication (6) Central positional vertigo: Code(s): H81.4 - Vertigo of central origin Category: Medical Plan History of Present Illness The patient is a 54-year-old female presenting with a request for a wellness visit and chronic disease management. Significant for generalized anxiety disorder and fibromyalgia, she describes ongoing pain and sleep disturbances related to fibromyalgia. The patient's history of hypercholesterolemia is stabilized with current medications. Though past medical evaluations showed anemia from January 2024, she did not report current symptoms related to this. Anxiety is acknowledged, with a preference to minimize medication use in managing her condition. The patient actively utilizes fitness to manage stress and mitigate fibromyalgia discomfort. Screening for breast and colon cancer is current. She also discussed limiting her exposure to vaccinations due to personal preferences. Health Maintenance - Mammogram and colonoscopy screenings are up to date as of early 2023. - Blood work from January 2024 showed normal cholesterol, renal function, blood sugar, liver function, and thyroid function. - Encouraged to maintain an active lifestyle and healthy eating habits to manage weight gained during COVID-19. - Refused flu vaccination, with discussion deferred due to missed appointments. Social History - The patient works in a hybrid model, expressing increased stress and sleep issues on days spent in the office. - Actively engages in regular gym activities to manage fibromyalgia and stress. - Mentioned financial responsibilities driving her continued employment despite health challenges. Review of Systems - Musculoskeletal: Reports generalized body pain attributed to fibromyalgia. - Neurological: Reports sleep disturbances, particularly on office days. - Psychological: Reports ongoing stress and increasing workload complexities. Physical Exam General: Cooperative, healthy appearing, comfortable, no acute distress and well developed Orientation: Patient oriented x3 Limitations: No limitations Head: Normal to inspection Ears: Hearing grossly normal bilaterally Nose: Normal external nose present Face and sinus: Normal facial exam Eyes: Appearance normal, both eyes and all related structures Neck: Normal visual inspection and Yes full ROM Respiratory: Normal respiratory effort and able to speak in complete sentences. Clear to auscultation bilaterally Cardiovascular: Regular rate and rhythm. Normal S1 and S2 GI: Normal to inspection. Soft to palpation and nontender Skin: No rashes or lesions noted Neuro: Patient oriented x3 Extremities: Normal to inspection Results - Labs: January 2024 reported normal anemia, renal function, blood sugar, liver function, cholesterol, and thyroid level. Plan The plan is to manage hypercholesterolemia and generalized anxiety disorder through current medications while continuing with lifestyle changes. Referral for physical therapy to manage fibromyalgia symptoms was given. Emphasized regular exercise and diet to help manage pain and stress, aligning with the patient's preference for less medication. Patient was informed and verbally consented to the use of an ambient scribe for clinic note documentation during this visit. Discussion Notes During the visit, I addressed the patient's medical history, including continued management of hypercholesterolemia and anxiety disorder with lifestyle adaptations. We discussed the past unsuccessful trial of duloxetine for fibromyalgia, leading to patient preference for minimized medication and an adapted lifestyle. The importance of remaining physically active and consuming a balanced diet to aid in symptom control was emphasized. I provided a referral for physical therapy as a non-pharmacological intervention for fibromyalgia. I reaffirmed the importance of regular screenings and preventive measures. Patient Instructions - Continue physical activity and healthy diet practices to manage weight and stress. - Utilize referral for physical therapy to manage fibromyalgia symptoms. - Maintain regular screenings for breast and colon cancer as scheduled. - Follow up as needed for any change in symptoms or additional concerns. Orders: Orders PT Evaluation and Treatment Today H81.4 - Vertigo of central origin Medications: Refilled cyclobenzaprine 5 - 10 mg (1 - 2 x 5 mg) PO BEDTIME PRN 30 tabs 0RF muscle spasm M79.7 - Fibromyalgia ibuprofen 800 mg PO TID PRN 90 tabs 0RF Pain 90 days M79.7 - Fibromyalgia amitriptyline 25 mg PO BEDTIME 90 tabs 0RF
--- OUTSIDE RECORDS SUMMARY | 2024-11-09 18:30 | XMS_ITS ---
Author Organization [facility] Address [address] [place] [address] Care Team Providers Care Image Processing Engineer Name Role Phone Starr Michaud Primary Care Provider Reta Alvarado [phone] REASON FOR VISIT BUY Pedag [employer] (red) #39 / L9 Encounters Encounter Location Date Provider Diagnosis [address] [address] 09/09/2024 Reta Howard Plan Of Treatment Next Appt Details Provider Name:Reta craft, 11/20/2024 12:00:00 PM, [address] [place] [address], [phone], Progress Notes * Tyesha WRENDOB:1970 (54 yo F)Acc No.[id number]:09/09/2024 Patient:?Tyesha WREN :1970???Age:54 Y???Sex:Female Address:[address] [place] [address] * true * Date:? Generated for Beliai estelle/Antonia/eTransmitting on:?11/09/2024 06:30 PM EDT
--- OUTSIDE RECORDS SUMMARY | 2024-11-09 18:30 | XMS_ITS ---
Author Organization [facility] Address [address] [place] [address] Care Team Providers Care Hopper Feeder Name Role Phone JOANNA ROSADO M.D. Primary Care Provider Chelsi Spann Unavailable [phone] Allergies Allergen (clinical drug ingredient) Drug/Non Drug [...] UROBILINOGEN Trace BILIRUBIN Trace BLOOD Neg Urinalysis, Complete-[id number] Reviewed date:09/20/2024 01:13:53 PM Interpretation: Performing Lab[facility], [address] [place] [address], [place], Phone - [phone], Director - Delphine Notes/Report: Clinical Information:SRC: URINE Clinical Information:SRC: URINE Specific [place] 1.024 1.005-1.030 pH 7.0 5.0-7.5 Urine-Color Yellow [...] N/A Bacteria Many None seen/Few Urine Culture, Routine-[id number] Reviewed date:09/20/2024 01:13:36 PM Interpretation: Performing Lab:[facility], [address] [facility] [address] [facility], [place], Phone - [phone], Director - Delphine Notes/Report: Clinical Information:SRC: URINE Clinical Information:SRC: URINE Urine Culture, Routine Final report Result 1 Culture shows less than 10,000 colony forming units of bacteria per milliliter of urine. This colony count is not generally considered to be clinically significant. PDF Report Reviewed date:09/20/2024 01:13:18 PM Interpretation: Performing Lab:[facility] [place], [address] [facility], [place], Phone - [phone], Director - Delphine Notes/Report: Clinical Information:SRC: URINE REASON FOR VISIT Annual ASSOCIATE DIRECTOR FINANCE Physical, Annual ASSOCIATE DIRECTOR FINANCE Physical 50-59* Medications Medication SIG (Take, Route, Frequency, Duration) Notes Start Date End Date Status Estradiol Vaginal Cream 0.01% 1 Gram to the affected area Vaginal/Vulva Twice a week for 90 days Please use good rx if cheaper for patient. ID: [id number], BIN: [id number], PCN: CRISTY, GROUP: [id number] 09/13/2023 Active Vitamin [...] Orally Once a day Active Vitamin A 93201 UNIT 1 capsule with food or milk [...] 09/18/2024 Encounters Encounter Location Date Provider Diagnosis [address] [address] 09/18/2024 Chelsi Jeff Encounter for gynecological examination [...] Provider Name:Chelsi payne, 09/24/2025 08:50:00 AM, [address], [address], [place], [address], Progress Notes * CAROLE WREN:1970 (54 yo F)Acc No.[id number]:09/18/2024 PROGRESS NOTES Patient:?SALMA WREN Appointment Provider:?Chelsi payne M.D. :1970???Age:54 Y???Sex:Female D ate:09/18/2024 Address:[address] [place] [address], [id number] Pcp:JOANNA ROSADO M.D. Subjective: * Chief Complaints: * ??? Annual ASSOCIATE DIRECTOR FINANCE PhysicalAnnua l ASSOCIATE DIRECTOR FINANCE Physical 50-59* * HPI: ???New/Follow-up Patient Consult:? [...] adequate calcium via diet and supplementation ?Significant ASSOCIATE DIRECTOR FINANCE problems:?no significant operator/assistant foreman symptoms or problems * ROS:?general:?no?chest pain.?no?palpitations.?no?headache.?no?cough.?no?shortness of breath.?no?fever.?no?unexplained weight loss.?no?nausea/vomiting.?no?change in bowel movements.?no blood in stool.?no?genitourinary complaints.?no?skin complaints.? * Medical History:? * Icing Mixer History:?/ Para?3/3.?Sexual activity?currently sexually active.?Last Pap Smear:?08/28/22 NIL, NEG HPV , 08/24/20 NIL, NEG HPV, 08/21/19 NIL, NEG HPV, 08/08/18 NIL, NEG HRHPV, 08/02/17 NIL, POS HRHPV, 05/2014.?Mammogram:?09/21/23, 08/2022 [facility], 09/01/20 < 50% density, 08/14/19 < 50% density w/ add views, 08/2017 [facility], 07/10/2017 normal, 05/2016, 03/2015.?Abnormal Pap Smear:?2016 +HPV.?LMP and menses?Vandana 04/2015. One Episode of bleeding in 02/2015.? Control:?bilateral tubal ligation.?Colonoscopy?Appt in September with GI.? * OB History:?Total pregnancies?3.?Total living children?3.?NVD?3.? * Surgical History:?Bilateral Tubal Ligation [place] Teeth Colonoscopy * Hospitalization/Major Diagno stic Procedure:?3 [...] tablet Orally Once a day Vitamin A 78189 UNIT Capsule 1 capsule with food or [...] good rx if cheaper for patient. ID: [id number], BIN: [id number], PCN: [facility], GROUP: [id number] Iron 325 (65 Fe) MG Tablet 1 [...] Orally Once a day Taking Vitamin A 81884 UNIT Capsule 1 capsule with food or [...] good rx if cheaper for patient. ID: [id number], BIN: [id number], PCN: [facility], GROUP: [id number] Vaginal Cream 0.01% Cream 1 Gram to [...] BP:124/74mm Hg, Temp:97.2F. * Examination: ???General Exam: ?CONSTITUTIONAL:?General Appearance:?alert, in no acute distress, normal, well nourished ?NECK/THYROID:?Inspection/Palpation:?normal ?Thyroid:?normal size and shape ?RESPIRATORY:?Auscultation: clear to auscultation bilaterally, Respiratory Effort: normal.?CARDIOVASCULAR:?Auscultation: regular rate and rhythm.?BREAST, Right:?Inspection/Palpation:?no discharge, no masses present, no nipple retraction, no skin changes, no skin dimpling, no tenderness, no lymphadenopathy, no axillary mass, no axillary tenderness ?BREAST, Left:?Inspection/Palpation:?no discharge, no masses present, no nipple retraction, no skin changes, no skin dimpling, no tenderness, no lymphadenopathy, no axillary mass, no axillary tenderness ?GASTROINTESTINAL:?Abdomen:?no masses, nontender, nondistended ?Liver and Spleen:?normal ?Hernias:?no hernias present, no inguinal adenopathy ?MUSCULOSKELETAL:?Inspection/Palpation:?no clubbing, cyanosis, or edema ?SKIN:?Skin:?normal ?NEURO/PSYCH:?Orientation:?time , place, person ?Mood/Affect:?normal?Genitourinary: ?EXTERNAL GENITALIA:?External Genitalia:?normal, no lesions ?VAGINA:?Vagina:?normal appearance, no abnormal discharge, no lesions ?BLADDER:?Bladder:?no mass, nontender ?URETHRA:?Urethra:?no erythema or lesions present ?CERVIX:?Cervix:?no lesions, nontender ?UTERUS:?Uterus:?nontender, normal contour, normal mobility, normal size ?ADNEXA:?Adnexa:?no masses, no tenderness ?ANUS AND PERINEUM:?Anus/Perineum:?visually normal??? Assessment: * Assessment: 1.?Encounter for gynecologic al [...] CYST. ?? * Labs:? * ?Lab: Urinalysis ([facility] tion Date & Time - 09/18/2024) ? Value Reference Range ?NITRITE Neg * ?PH 7.0 * ?PROTEIN Small * ?S.G 1.015 * ?WBC Moderate * ?GLUCOSE Neg * ?KETONES Neg * ?UROBILINOGEN Trace * ?BILIRUBIN Trace * ?BLOOD Neg * D.ELVIA 09/18/2024 09:27:06 AM EST > U/A and Urine C/S Sent ?Lab: Urinalysis, Complete-[id number]?Lab: Urine Culture, Routine-[id number] * Procedure Codes:? * Preventive Medicine:? ??YOUR PREVENTIVE WELLNESS PLAN:?Osteoporosis prevention?Calcium, D, strength training.?Breast Cancer Screening (Mammogram):?annually.?Cervical Cancer Screening (Pap Smear):?q 3 years with HPV screen.?Colorectal Cancer Screening:?q 10 years.? * Follow Up:?1 Year * Images: Billing Information: * Visit Code:? 22716 Preventive Care New Pt. Age 40-64. 49498 Preventive Care Est Pt. Age 40-64. * Procedure Codes:? * Sign off status: Completed true * Appointment Provider:?Chelsi Jeff M.D. Date:?09/18/2024 Generated for Zan mccabe/Antonia/eTransmitting on:?11/09/2024 06:30 PM EDT History and Physical Notes * HPI (History [...] TEST IN 2016 WAS NEGATIVE BUT HPV POSITIVE. REPEAT SUBSEQUENT [...] COLONOSCOPY DONE IN 2022. PFIZER X 3. Annual General Health Maintenance: Current breast complaints:: no breast pain, mass, discharge, or skin changes Urinary problems:: patient r gaurirtmelissa no urinary health problems or bowel health problems Calcium intake:: takes adequ ate calcium via diet and supplementation Significant ASSOCIATE DIRECTOR FINANCE problems:: n o significant operator/assistant foreman symptoms or problems Examination Category Sub-Category Detail [...]
--- OUTSIDE RECORDS SUMMARY | 2024-11-09 18:30 | XMS_ITS ---
Author Organization [facility] Address [address] [place] [address] Care Team Providers Care Backend Python Developer Name Role Phone JOANNA ROSADO M.D. Primary Care Provider Chelsi Spann [phone] REASON FOR VISIT LAB SLIP FOR TUMOR MARKERS Encounters Encounter Location Date Provider Diagnosis [facility] [address] [place] [address] 09/25/2023 Chelsi Jeff Unspecified ovarian cyst, left side N83.202 Assessments Encounter Date Diagnosis (ICD Code) Assessment Notes Treatment Notes Treatment Clinical Notes Section Notes 09/25/2023 Unspecified ovarian cyst, left side (ICD-10 - N83.202) Plan Of Treatment Pending Test Test Name Order Date CANC ANT-125 09/25/2023 CEA MONOCLONAL 09/25/2023 INHIBIN B 09/25/2023 LDH 09/25/2023 Next Appt Details Provider Name:Chelsi payne, 09/24/2025 08:50:00 AM[facility] [address], [place], [address], Progress Notes * SALMA WRENDOB:1970 (53 yo F)Acc No.[id number]:09/25/2023 Patient:?SALMA WREN :1970???Age:53 Y???Sex:Female Address:[address] [place] [address], [address] Subjective: * Chief Complaints: * ???LAB SLIP FOR TUMOR MARKER S * Medical History:? * Surgical History:? * Hospitalization/Major Diagno stic Procedure:? * Medications:? Objective: Assessment: * Assessment: 1.?Unspecified ovarian cyst, left side - N83.? Plan: * Treatment: * Procedure Codes:? * true * Date:? Generated for Zan mccabe/Antonia/Roshanitting on:?11/09/2024 06:30 PM EDT
--- OUTSIDE RECORDS SUMMARY | 2024-11-09 18:30 | XMS_ITS | Patient Health Record ---
[facility] Address [address] [place] [address] Care Team Providers Care Subcontracts Manager Name Role Phone Starr Michaud Primary Care Provider Reta Alvarado Unavailable [phone] Allergies Allergen (clinical drug ingredient) Drug/Non Drug [...] Problem Status W/U Status Risk Notes Problem 177180972 Fibromyalgia (M79.7) Active confirmed Problem Acquired hallux valgus (77579937) Hallux valgus (acquired), left foot (M20.12) Active confirmed Problem Acquired hallux valgus (48653097) Hallux valgus (acquired), right foot (M20.11) Active confirmed Vital Signs Blood pressure diastolic 80 mm Hg 09/09/2024 Height 5ft4in in 09/09/2024 Blood pressure systolic 120 mm Hg 09/09/2024 Weight 180 lbs 09/09/2024 BMI 30.89 kg/m2 09/09/2024 Encounters Encounter Location Date Provider Diagnosis [facility] [address] [place] [address] 09/09/2024 Reta Howard Hallux valgus (acquired), left foot M20.12 ; Hallux valgus (acquired), right foot M20.11 ; Pain in right foot M79.671 ; Pain in right ankle and joints of right foot M25.571 ; Bursitis of right foot M77.51 and Fibromyalgia M79.7 [facility] [address] [place] [address] 06/19/2024 Reta Howard [facility] [address] 09/09/2024 Reta Howard Assessments Encounter Date Diagnosis [...] Details Provider Name:Reta craft, 11/20/2024 12:00:00 PM, [address] [place] [address], [address], Insurance Providers Payer Name Payer Address Payer Phone Subscriber Number Group Number Insured Name Patient Relationship to Insured Coverage Start Date Coverage End Date [facility] [address] [place] [address] [phone] [id number] Tyesha Ahuja Self - patient is the insured 3 Medical (General) History Medical History History ICD Code Anemia Anxiety Arthritis Back,Hip,and Knee pain Fibromyalgia Headaches/Migraines Menieres disease Chicken pox Lupus/borderline
--- OUTSIDE RECORDS SUMMARY | 2024-11-09 18:31 | XMS_ITS ---
Author Organization [facility] Address [address] [address] Care Team Providers Care Geoscientist Name Role Phone Starr Michaud Primary Care Provider Reta Alvarado Unavailable [phone] Allergies Allergen (clinical drug ingredient) Drug/Non Drug [...] Status Risk Notes Problem Acquired hallux valgus (64869096) Hallux valgus (acquired), left foot (M20.12) Active confirmed Problem Acquired hallux valgus (01930091) Hallux valgus (acquired), right foot (M20.11) Active confirmed Problem 466287193 Fibromyalgia (M79.7) Active confirmed Vital Signs Height 5ft4in in 09/09/2024 Weight 180 lbs 09/09/2024 BMI 30.89 kg/m2 09/09/2024 Blood pressure systolic 120 mm Hg 09/09/19 25 Blood pressure diastolic 80 mm Hg 025 Encounters Encounter Location Date Provider Diagnosis [facility] [address] [place] [address] 09/09/2024 Reta Howard Hallux valgus (acquired), left [...] Reason: Provider Name:Reta craft, 11/20/2024 12:00:00 PM, [address] [place] [address], [address], Progress Notes * Tyesha WRENDOB:1970 (54 yo F)Acc No.[id number]:09/09/2024 Progress Notes Patient:?Tyesha WREN Provider:?Reta Howard DPM :1970???Age:54 Y???Sex:Female D ate:09/09/2024 Address:[address] [place], [place] [id number] Pcp:Starr Michaud Subjective: * Chief Complaints: * [...] Foot, AP, LAT, LO, B/L??Taken by trained?Podiatric Distribution Operation Supervisor (?SF ).?Findings:?normal bone and soft tissue density [...] ray : Foot, left 3V * Procedure Codes:?04469 X-RAY EXAM OF LEFT FOOT 3V, Modifiers: 26 , EX82803 X-RAY EXAM OF RIGHT FOOT 3V, Modifiers: 26 [...] CÉSAR ArmstrongM Date:? Generated for Zan mccabe/Antonia/Shante on:?11/09/2024 06:30 PM EDT History and Physical [...] LAT, LO, B/L Taken by trained Podiatric Distribution Operation Supervisor ( SF ) Clinical Indication(s): Evaluate Biomech anical Deformity
--- OUTSIDE RECORDS SUMMARY | 2024-11-09 18:31 | XMS_ITS ---
Author Organization [facility] Address [address] [place] [address] Care Team Providers Care Rail Bender Name Role Phone Starr Michaud Primary Care Provider Reta Alvarado [phone] REASON FOR VISIT CAREER REPRESENTATIVE Encounters Encounter Location Date Provider Diagnosis [facility] [address] [place] [address] 06/19/2024 Reta Howard Plan Of Treatment Next Appt Details Provider Name:Reta craft, 11/20/2024 12:00:00 PM, [address] [place], [address], Progress Notes * Tyesha WRENDOB:1970 (54 yo M)Acc No.[id number]:06/19/2024 Patient:?Tyesha Wren :1970???Age:54 Y???Sex:Male Address:[address] [place] [address] * true * Date:? Generated for Printi ng/Faedgarg/eTransmitting on:?11/09/2024 06:30 PM EDT
--- OUTSIDE RECORDS SUMMARY | 2024-11-09 18:31 | XMS_ITS | Patient Health Record ---
Author Organization [facility] Address [address] [place] [address] Care Team Providers Care Beam Racker Name Role Phone JOANNA ROSADO M.D. Primary Care Provider Chelsi Spann Unavailable [phone] MARY JANE JAVED Unavailable [phone] Allergies Allergen (clinical drug ingredient) Drug/Non Drug [...] UROBILINOGEN Trace BILIRUBIN Trace BLOOD Neg Urinalysis, Complete-[id number] Reviewed date:09/20/2024 01:13:53 PM Interpretation: Performing Lab:[facility], [address] [place] [address], [place], Phone - [phone], Director - Delphine Notes/Report: Clinical Information:SRC: URINE Clinical Information:SRC: URINE Specific [place] 1.024 1.005-1.030 pH 7.0 5.0-7.5 Urine-Color Yellow [...] N/A Bacteria Many None seen/Few Urine Culture, Routine-39052 7 Reviewed date:09/20/2024 01:13:36 PM Interpretation: Performing Lab:[facility] [place], [address] [place] [address], Phone - [phone], Director - Delphine Notes/Report: Clinical Information:SRC: URINE Clinical Information:SRC: URINE Urine Culture, Routine Final report Result 1 Culture shows less than 10,000 colony forming units of bacteria per milliliter of urine. This colony count is not generally considered to be clinically significant. PDF Report Reviewed date:09/20/2024 01:13:18 PM Interpretation: Performing Lab:[facility] [place], [address] [place] [address], Phone - [phone], Director - Delphine Notes/Report: Clinical Information:SRC: URINE Reason For Referral No Information Medications Medication SIG (Take, Route, Frequency, Duration) Notes Start Date End Date Status Vitamin C 500 MG as directed Orally Active Vitamin B Complex - as directed Orally twice a week Active Iron 325 (65 Fe) MG 1 tablet Orally Once a day for 30 day(s) Active Anusol-HC 2.5 % 1 application to affected area Rectal Twice a day as needed for 30 day(s) 08/08/2018 Active Calcium 1 tab Oral for 14 days Active Melatonin 5 MG 1 tablet in the evening Orally Once a day for 30 day(s) Active Estradiol Vaginal Cream 0.01% 1 Gram to the affected area Vaginal/Vulva Twice a week for 90 days Please use good rx if cheaper for patient. ID: [id number], BIN: [id number], PCN: [facility], GROUP: [id number] 09/13/2023 Active Flexeril 10MG 1 NEEDED for -3 06/09/2014 Active Ibuprofen 800MG 1 ORAL as needed for -3 04/14/2014 Active Estradiol Vaginal Cream 0.01% 1 Gram to the affected area Vaginal/Vulva Twice a week for 90 Days 09/18/2024 Active Multivitamins 1 ORAL daily for -3 04/13/2013 Active Amitriptyline HCl 25 MG 1 tablet Orally Once a day Active Vitamin A 74006 UNIT 1 capsule with food or milk Orally 2-3 x a week Active Vitamin D 1000 UNIT 1 tablet Orally 2-3 x a week Active Social History Tobacco Use: Social History [...] (Standard) Question Answer Notes Tobacco use: Nonsmoker Section Notes: MARITAL STATUS: single CHILDREN: 3 Children LIVES WITH: children OCCUPATION: employed full-time NUTRITION: average diet EXERCISE: regular walking SEXUAL ACTIVITY: monogamous relationship. CONTRACEPTION: N/A .CE: Smoking: Never a smoker .CE: ALCOHOL: rare alcohol TEXT MESSAGING WHILE DRIVING: no SUNSCREEN: yes ILLICIT DRUGS: no SEATBEALT: yes Problems Problem Type SNOMED Code ICD Code Onset Dates Problem Status W/U Status Risk Notes Problem Human papilloma virus deoxyribonucleic acid test positive, high risk on vaginal specimen (727538164109260) Cervical high risk human papillomavirus (HPV) DNA test positive (R87.810) Active confirmed Problem Menopause (918404229) Menopausal and female climacteric states (N95.1) Active confirmed Problem Postmenopausal atrophic vaginitis (61680327) Postmenopausal atrophic vaginitis (N95.2) Active confirmed Problem Postmenopausal bleeding (75926605) Postmenopausal bleeding (N95.0) Active confirmed Problem Cyst of ovary (44735421) Other and unspecified ovarian cyst (620.2) Active confirmed Diag Problem Excessive and frequent menstruation (077434467) Excessive or frequent menstruation (626.2) Active confirmed Major Problem Irregular menstrual cycle (51293162) Irregular menstrual cycle (626.4) Active confirmed Diag Problem Gynecological examination normal (402780675345125) Routine gynecological examination (V72.31) Active confirmed Major Vital Signs Temperature 97.2 degrees Fahrenheit 09/18/2024 Blood pressure diastolic 74 mm Hg 09/18/2024 Height 65 in 09/18/2024 Blood pressure systolic 124 mm Hg 09/18/2024 Weight 176 lbs 09/18/2024 BMI 29.28 kg/m2 09/18/2024 Encounters Encounter Location Date Provider Diagnosis [place] [address] [facility] [address] [address] 09/18/2024 Chelsiricha Jeff Encounter for gynecological examination (general) (routine) without abnormal findings Z01.419 ; Encounter for screening mammogram for malignant neoplasm of breast Z12.31 ; Urgency of urination R39.15 ; Postmenopausal atrophic vaginitis N95.2 ; Personal history of other diseases of the female genital tract Z87.42 and Other ovarian cyst, left side N83.[address] [address] 09/07/2024 MARY JANE JAVED Postmenopausal atrophic vaginitis N95.2 Assessments Encounter Date Diagnosis (ICD Code) Assessment Notes Treatment Notes Treatment Clinical Notes Section Notes 09/07/2024 Postmenopausal atrophic vaginitis (ICD-10 - N95.2) 09/18/2024 Encounter for gynecological examination (general) (routine) [...] NOT AN OVARIAN CYST. Plan Of Treatment Pending Test Test Name Order Date MAMMOGRAM, SCREENING 07/05/2015 Urinalysis 08/02/2017 Urinalysis 08/21/2021 Ultrasound : Sono Hystergram 08/02/2017 ENDOMETRIAL BX 08/02/2017 CANC ANT-125 09/25/2023 CEA MONOCLONAL 09/25/2023 DHEA SULFATE 08/21/2021 ESTRADIOL 08/02/2017 FSH 08/02/2017 INHIBIN B 09/25/2023 LDH 09/25/2023 LH 08/02/2017 TESTOSTERONE 08/21/2021 THIN PREP,HPV,BEATRIZ IF HPV+ (>29YR)(SCRN) 08/02/2017 TSH 08/21/2021 MM Digital Mammo Screening 08/02/2017 MM Digital Mammo Screening 08/24/2020 MM Digital Mammo Screening 08/21/2021 MM Digital Mammo Screening 08/28/2022 MM Digital Mammo Screening 09/13/2023 MM Digital Mammo Screening 09/18/2024 PELVIC ULTRASOUND W/TRANSVAGINAL 021 Next Appt Details Provider Name:Chelsi Dumont kerry, 09/24/2025 08:50:00 AM, [address] [facility], [address], [place], [address], Insurance Providers Payer Name Payer Address Payer Phone Subscriber Number Group Number Insured Name Patient Relationship to Insured Coverage Start Date Coverage End Date [facility] [address] [place] [address] [id number] SALMA WREN Self - patient is the insured Medical (General) History Medical History History ICD Code Other specified irregular menstruation N 92.5 Other ovarian cysts N83.29 Excessive and frequent menstruation with regular cycle N92.0 Menopausal and female climacteric states N95.1 Inconclusive mammogram R92.2 Postmenopausal bleeding N95.0 Postmenopausal atrophic vaginitis N95.2 Cervical high risk human papillomavirus (HPV) DNA test positive R87.810 Unspecified hemorrhoids K64.9 Nonscarring hair loss, unspecified L65.9 Surgical History Surgery Date(Month/Year) Bilateral Tubal Ligation [place] Teeth Colonoscopy Hospitalization History Reason Date(Month/Year) See Surgical Hx 3 Vaginal Deliveries
--- OUTSIDE RECORDS SUMMARY | 2024-11-09 18:31 | XMS_ITS ---
Author Organization [facility] Address [address] [place] [address] Care Team Providers Care Asparagus Cutter Name Role Phone JOANNA ROSADO M.D. Primary Care Provider Chelsi Spann Unavailable [phone] MARY JANE JAVED Unavailable [phone] REASON FOR VISIT New Refill Request Medications Medication SIG (Take, Route, Frequency, Duration) Notes Start Date End Date Status Estradiol Vaginal Cream 0.01% 1 Gram to the affected area Vaginal/Vulva Twice a week for 90 days Please use good rx if cheaper for patient. ID: [id number], BIN: [id number], PCN: [facility], GROUP: [id number] 09/13/2023 Active Encounters Encounter Location Date Provider Diagnosis [facility] [address] [address] 09/07/2024 MARY JANE TELLO Postmenopausal atrop hic [...] good rx if cheaper for patient. ID: [id number], BIN: [id number], PCN: [facility], GROUP: [id number] Next Appt Details Provider Name:Chelsi payne, 09/24/2025 08:50:00 AM, [address] [place] [address], [place], [address], Progress Notes * SIENA SALMADOB:1970 (54 yo F)Acc No.[id number]:09/07/2024 Patient:?SALMA WREN :1970???Age:54 Y???Sex:Female Address:[address] [place] [address], [address] * Refills? Refill Estradiol Vaginal Cream Cream, 0.01%, Vaginal/Vulva, 42.5 Gram, 1 Gram to the affected area, Twice a week, 90 days, Refills=0 * true * Date:? Generated for Zan mccabe/Antonia/Rosaurasmitting on:?11/09/2024 06:31 PM EDT
== END 2024-11-09 17:47 | disposition home or self-care (01) ==
LOC: HO.HMCH 16:29
PROVIDERS: PCP Internal Medicine; Visit Provider Internal Medicine
DX: Z00.00 Encounter for general adult medical examination without abnormal findings (principal); E66.3 Overweight; E78.00 Pure hypercholesterolemia, unspecified; D64.9 Anemia, unspecified; F41.1 Generalized anxiety disorder; H81.4 Vertigo of central origin

== ENCOUNTER → 2024-11-09 16:28 | Outpatient (BNVA) | payer OTHER, SELFPAY | PROVIDERS: PCP Internal Medicine; Visit Provider Internal Medicine | DX: Z00.00 Encounter for general adult medical examination without abnormal findings (principal); E66.3 Overweight; E78.00 Pure hypercholesterolemia, unspecified; D64.9 Anemia, unspecified; F41.1 Generalized anxiety disorder; H81.4 Vertigo of central origin | CPT/HCPCS: 96127 ==